=== PATIENT | male | born 1980 | race Caucasian/White ===

== ENCOUNTER 2016-06-18 22:36 | Emergency (ER) | payer SELFPAY ==
[~2016-06-18] VITALS: Ht 180.3 cm; Wt 78.0 kg
[~2016-06-18 22:36] MED LIST: BUPR-175 PO; LITH300 PO; SERO200T PO; WELL150T PO
[2016-06-18 22:38] VITALS: BP 161/99; PULSE 102; RESP 16; TEMP 98.4; O2SAT 98
[2016-06-18] MEDS ORDERED: LITH300T3 PO (23:20)
[2016-06-18] MEDS ORDERED: ADDE30TA PO (23:20)
[2016-06-18] MEDS ORDERED: SERO200T PO (23:20)
[2016-06-18] MEDS ORDERED: BUPR150CR PO (23:20)
--- NOTE | 2016-06-18 23:24 | PD ---
HPI Chief Complaint: Skin Problem Time Seen by Provider: 23:19 Travel History International Travel<30 days: No Contact w/Intl Traveler<30days: No Traveled to known affect area: No History of Present Illness HPI 36-year-old white male presents to emergency department complains of a area of tenderness, redness and swelling to the left inner calf. He states that this is been present now for 2 days and getting worse. He states the pain is radiating down his leg. He denies any trauma. 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 He is unsure whether he been bitten by an insect and has an infection. He states that he is disabled with mental health. He denies any IV drug abuse. He denies any fever chills. No nausea vomiting. No numbness or tingling. Pain is mild to moderate. No alleviating factors. PFSH Past Medical History Narrative Medical Hepatitis C, ADHD, bipolar, PTSD, schizoaffective ADD: Yes ADHD: Yes Arthritis: Yes Asthma: Yes Autoimmune Disease: No Bipolar Disorder: Yes Anxiety: Yes Depression: Yes Cancer: Yes Cardiovascular Problems: No Chemotherapy: No Cirrhosis: No COPD: No Cerebrovascular Accident: No Diabetes: No Diminished Hearing: No Endocrine: No Gastrointestinal Disorders: No GERD: No Genitourinary: No Headaches: Yes (All the time ) Hepatitis: Yes (HEP C) Hiatal Hernia: No Immune Disorder: No Kidney Stones: No Musculoskeletal: No Neurologic: Yes Psychiatric: Yes Reproductive: No Respiratory: Yes Immunizations Current: Yes Migraines: Yes Radiation Therapy: No Renal Failure: No Schizophrenia: Yes Seizures: Yes Sickle Cell Disease: No Sleep Apnea: No Thyroid Disease: No Ulcer: No Tetanus Vaccination: Unknown Past Surgical History Narrative Surgical Right groin cancer, herniorrhaphy Abdominal Surgery: Yes (herniorrhaphy) AICD: No Arteriovenous Shunt: No Insulin Pump: No Joint Replacement: No Oral Surgery: Yes Pacemaker: No Other Surgery: Yes (CANCER REMOVED FROM RT GROIN) Social History Alcohol Use: Yes Tobacco Use: Yes (1/2PPD) Substance Use: No (HX OF POLYSUBSTANCE ABUSE METH AND HEROIN) Allergies-Medications (Allergen,Severity, Reaction): Coded Allergies: Shellfish (Verified Allergy, Severe, HIVES, 04/15/15) *MDRO Multi-Drug Resistant Organism (Verified Adverse Reaction, Unknown, ) MRSA PCR Screen positive 10/28/14. Reported Meds & Prescriptions Reported Meds & Active Scripts Active Ibuprofen 800 Mg Tab 800 Mg PO Q8H PRN Keflex (Cephalexin) 500 Mg Cap 500 Mg PO Q6H Reported [place] Carbonate 300 Mg Tab 300 Mg PO BID Seroquel (Quetiapine Fumarate) 200 Mg Tab 200 Mg PO BID Adderall (Amphetamine-Dextroamphetamine) 30 Mg Tab 30 Mg PO BID Avoid late evening doses. Space doses at least 4 to 6 hours if more than once/day dosing. Review of Systems Except as stated in HPI: all other systems reviewed are Neg Physical Exam Narrative GENERAL: This is a well-nourished, well-developed patient, in no apparent distress. SKIN: No rashes, ecchymoses or lesions. Warm and dry. HEAD: Atraumatic. Normocephalic. EYES: PERRL, EOMI, no discharge or injection. No scleral icterus. EARS: Clear NOSE: Nasal turbinates appear normal. THROAT: Mucosa pink and moist. Airway patent. NECK: Trachea midline. supple, moves head freely. LUNGS: Clear to auscultation. CV: Regular in rhythm. ABDOMEN: Soft nontender. EXT: No clubbing cyanosis or edema. Patient has a area of erythema, warmth and induration to the medial mid left calf. There is some tenderness inferior to the induration. No posterior calf tenderness. No Homans sign. The area measures approximately 4 x 4 centimeters. No fluctuance or pointing. Data Data Last Documented VS Vital Signs Date Time Temp Pulse Resp B/P Pulse Ox O2 Delivery O2 Flow Rate FiO2 06/18/16 23:12 102 16 06/18/16 22:38 98.4 161/99 98 Orders Us Leg Venous Doppler (06/18/16 23:17) Complete Blood Count With Diff (06/18/16 23:17) Basic Metabolic Panel (Bmp) (06/18/16 23:17) Drug Screen, Random Urine (06/18/16 23:17) Cephalexin (Keflex) (06/19/16 01:30) Ibuprofen (Motrin) (06/19/16 01:30) Aspirin (Aspirin) (06/19/16 01:30) Labs Laboratory Tests Test 06/19/16 00:05 White Blood Count 10.8 TH/MM3 Red Blood Count 5.54 MIL/MM3 Hemoglobin 15.5 GM/DL Hematocrit 45.9 % Mean Corpuscular Volume 82.9 FL Mean Corpuscular Hemoglobin 28.0 PG Mean Corpuscular Hemoglobin 33.8 % Concent Red Cell Distribution Width 15.7 % Platelet Count 224 TH/MM3 Mean Platelet Volume 9.3 FL Neutrophils (%) (Auto) 65.9 % Lymphocytes (%) (Auto) 22.9 % Monocytes (%) (Auto) 8.7 % Eosinophils (%) (Auto) 1.7 % Basophils (%) (Auto) 0.8 % Neutrophils # (Auto) 7.1 TH/MM3 Lymphocytes # (Auto) 2.5 TH/MM3 Monocytes # (Auto) 0.9 TH/MM3 Eosinophils # (Auto) 0.2 TH/MM3 Basophils # (Auto) 0.1 TH/MM3 CBC Comment AUTO DIFF Sodium Level 139 MEQ/L Potassium Level 4.1 MEQ/L Chloride Level 105 MEQ/L Carbon Dioxide Level 29.1 MEQ/L Anion Gap 5 MEQ/L Blood Urea Nitrogen 7 MG/DL Creatinine 0.92 MG/DL Estimat Glomerular Filtration 93 ML/MIN Rate Random Glucose 86 MG/DL Calcium Level 9.1 MG/DL Urine Opiates Screen NEG Urine Barbiturates Screen NEG Urine Amphetamines Screen NEG Urine Benzodiazepines Screen NEG Urine Cocaine Screen NEG Urine Cannabinoids Screen NEG MDM Medical Decision Making Medical Screen Exam Complete: Yes Emergency Medical Condition: Yes Medical Record Reviewed: Yes Interpretation(s) CBC & BMP Diagram 06/19/16 00:05 Laboratory Tests Test 06/19/16 00:05 White Blood Count 10.8 TH/MM3 Red Blood Count 5.54 MIL/MM3 Hemoglobin 15.5 GM/DL Hematocrit 45.9 % Mean Corpuscular Volume 82.9 FL Mean Corpuscular Hemoglobin 28.0 PG Mean Corpuscular Hemoglobin 33.8 % Concent Red Cell Distribution Width 15.7 % Platelet Count 224 TH/MM3 Mean Platelet Volume 9.3 FL Neutrophils (%) (Auto) 65.9 % Lymphocytes (%) (Auto) 22.9 % Monocytes (%) (Auto) 8.7 % Eosinophils (%) (Auto) 1.7 % Basophils (%) (Auto) 0.8 % Neutrophils # (Auto) 7.1 TH/MM3 Lymphocytes # (Auto) 2.5 TH/MM3 Monocytes # (Auto) 0.9 TH/MM3 Eosinophils # (Auto) 0.2 TH/MM3 Basophils # (Auto) 0.1 TH/MM3 CBC Comment AUTO DIFF Sodium Level 139 MEQ/L Potassium Level 4.1 MEQ/L Chloride Level 105 MEQ/L Carbon Dioxide Level 29.1 MEQ/L Anion Gap 5 MEQ/L Blood Urea Nitrogen 7 MG/DL Creatinine 0.92 MG/DL Estimat Glomerular Filtration 93 ML/MIN Rate Random Glucose 86 MG/DL Calcium Level 9.1 MG/DL Urine Opiates Screen NEG Urine Barbiturates Screen NEG Urine Amphetamines Screen NEG Urine Benzodiazepines Screen NEG Urine Cocaine Screen NEG Urine Cannabinoids Screen NEG Last 24 hours Impressions Lower Extremity Ultrasound 06/18/16 3197 Signed Impressions: Service Date/Time: Saturday, June 18, 2016 23:33 - CONCLUSION: No evidence of deep venous thrombosis. Nonocclusive superficial thrombophlebitis in the greater saphenous vein Marin Rodriguez MD Differential Diagnosis MDM: High Differential diagnoses: Abscess, folliculitis, cellulitis, lymphangitis, abrasion, contact dermatitis, DVT, IVDA Narrative Course IV access is obtained. CBC, chemistry, UDS and ultrasound of left leg. Ultrasound confirms a superficial phlebitis. Patient's given Keflex 500 mg by mouth, Motrin 800 mg by mouth, and one aspirin 325 by mouth. Diagnosis Primary Impression: Phlebitis of leg, left, superficial Patient Instructions: General Instructions Additional Instructions: Rest. Warm compresses. One aspirin daily. Motrin and Keflex. Recheck with a medical doctor in one week. Return to the ER if any problems. Med/Other Pt SpecificInfo: Prescription(s) given Scripts Ibuprofen 800 Mg Fed119 Mg PO Q8H PRN (Pain/Inflammation) #30 TAB Prov:Re Jordan MD 06/19/16 Cephalexin (Keflex)500 Mg Sos904 Mg PO Q6H #40 CAP Prov:Re Jordan MD 06/19/16 Disposition: 01 DISCHARGE HOME Condition: Stable Mu Pérez Jun 18, 2016 23:23
--- NOTE | 2016-06-19 00:13 | RADRPT ---
EXAM DATE/TIME: 06/18/2016 23:33 [facility] COMPARISON: No previous studies available for comparison. INDICATIONS : Left leg swelling. MEDICAL HISTORY : Rheumatoid arthritis. Hepatitis C. Seizures. Head trauma. Migraines. Ashtma. Cancer. ADHD. Schiz ophrenia. Bipolar disorder. PTSD. Anxiety. Previous suicide attempt. Substance use. SURGICAL HISTORY : Herniorrhaphy. Cancer removed from right groin. ENCOUNTER: Initial ACUITY: 1 day PAIN SCORE: 8/10 LOCATION: Left leg. TECHNIQUE: Venous ultrasound of the leg was performed from the inguinal ligament to the proximal calf. Real-mari e, color Doppler and spectral tracing, compression and augmentation techniques were used. FINDINGS: There is normal compressibility of the deep venous system from the inguinal region to the proximal ca lf. No echogenic clot is seen in the lumen of the common femoral, femoral, popliteal, and posterior tibial veins. There is a normal response of the venous system to proximal and distal augmentation an d respiration. There is minimal nonocclusive thrombus involving the greater saphenous vein at the le boris of the knee. CONCLUSION: No evidence of deep venous thrombosis. Nonocclusive superficial thrombophlebitis in the greater saphe nous vein Marin Rodriguez MD on June 19, 2016 at 0:10 Board Certified Radiologist. This report was verified electronically.
[2016-06-19 00:36] LABS: AMPHETAMINE, URINE NEG (NEG); AUTOMATED NEUTROPHIL # 7.1 TH/MM3 (1.8-7.7); BARBITURATES, URINE NEG (NEG); BASOPHIL # 0.1 TH/MM3 (0-0.2); BASOPHIL % 0.8 % (0.0-2.0); COCAINE, URINE NEG (NEG); EOSINOPHIL # 0.2 TH/MM3 (0-0.4); EOSINOPHIL % 1.7 % (0.0-4.0); HEMATOCRIT 45.9 % (39.0-51.0); LYMPH % 22.9 % (9.0-44.0); LYMPHOCYTE # 2.5 TH/MM3 (1.0-4.8); MEAN CELL VOLUME 82.9 FL (80.0-100.0); MEAN CORPUSCULAR HGB CONC 33.8 % (32.0-36.0); MONO % 8.7 % (0.0-8.0); NEUT % 65.9 % (16.0-70.0); PLATELET COUNT 224 TH/MM3 (150-450); RED BLOOD COUNT 5.54 MIL/MM3 (4.50-5.90); RED CELL DISTRIBUTION WIDTH 15.7 % (11.6-17.2); WHITE BLOOD COUNT 10.8 TH/MM3 (4.0-11.0)
[2016-06-19 00:42] LABS: HEMO FLAGS AUTO DIFF
[2016-06-19 00:46] LABS: BICARBONATE 29.1 MEQ/L (21.0-32.0); POTASSIUM 4.1 MEQ/L (3.5-5.1)
[2016-06-19] MEDS ORDERED: CEPH-460 PO (01:26)
[2016-06-19] MEDS ORDERED: IBUP800T23 PO (01:26)
[2016-06-19] MEDS ORDERED: CEPHALEXIN MONOHYDRATE 500 MG CAP PO ONE (01:30)
[2016-06-19] MEDS ORDERED: IBUPROFEN 800 MG TAB PO ONE (01:30)
[2016-06-19] MEDS ORDERED: ASPIRIN 325 MG TAB PO ONE (01:30)
[2016-06-19 01:42] LABS: BANDS 2 % (0-6); EOSINOPHILS 1 % (0-4); NEUTROPHIL # MANUAL DIFF 7.7 TH/MM3 (1.8-7.7); PLATELET ESTIMATE SMEAR NORMAL (NORMAL); PLATELET MORPHOLOGY NORMAL (NORMAL); POLYS (SEG NEUTROPHILS) 69 % (16-70); SCAN/DIFF FINAL DIFF MANUAL; WBC DIFF SAMPLE 100
== END 2016-06-19 01:45 | disposition home or self-care (01) ==
LOC: NEPD 22:36
DX: I80.02 Phlebitis and thrombophlebitis of superficial vessels of left lower extremity (principal); F17.210 Nicotine dependence, cigarettes, uncomplicated; F43.10 Post-traumatic stress disorder, unspecified; B19.20 Unspecified viral hepatitis C without hepatic coma; F31.9 Bipolar disorder, unspecified; F20.9 Schizophrenia, unspecified
CPT/HCPCS: 80048; 80307; 85007; 85027; 93971

== ENCOUNTER 2016-11-02 11:34 | Emergency (ER) | payer SELFPAY ==
[~2016-11-02] VITALS: Ht 177.8 cm; Wt 85.0 kg
[~2016-11-02 11:34] MED LIST changes: +ADDE30TA PO; -BUPR-175 PO; +CEPH-460 PO; +IBUP800T23 PO; -LITH300 PO; +LITH300T3 PO; -WELL150T PO
[2016-11-02 11:36] VITALS: BP 117/67; PULSE 66; RESP 20; TEMP 98.6; O2SAT 99
--- NOTE | 2016-11-02 12:12 | PD ---
HPI Chief Complaint: Psychiatric Symptoms Time Seen by Provider: 12:03 Travel History International Travel<30 days: No Contact w/Intl Traveler<30days: No Traveled to known affect area: No History of Present Illness HPI 36-year-old male with history of schizophrenia and PTSD comes in voluntarily requesting psychiatric evaluation for suicidal ideation. Patient currently on Wellbutrin, Seroquel, lithium. Patient reports he was recently kicked out of a sober living house due to inability to pay. Patient reports history of IV heroin abuse. He reports he has been clean for the last 3 months. He reports the last 23 days he has been drinking heavily and has become suicidal. Last alcohol drink 2 hours ago. His plan is to overdose on heroin. He has a history of previous suicide attempts. He denies homicidal ideation. Patient denies fever, chills, chest pain, shortness breath, abdominal pain. PFSH Past Medical History ADD: Yes ADHD: Yes Arthritis: Yes Asthma: Yes Autoimmune Disease: No Bipolar Disorder: Yes Anxiety: Yes Depression: Yes Cancer: Yes Cardiovascular Problems: No Chemotherapy: No Cirrhosis: No COPD: No Cerebrovascular Accident: No Diabetes: No Diminished Hearing: No Endocrine: No Gastrointestinal Disorders: No GERD: No Genitourinary: No Headaches: Yes (All the time ) Hepatitis: Yes (HEP C) Hiatal Hernia: No Heparin Induced Thrombocytopen: No Immune Disorder: No Implanted Vascular Access Dvce: No Kidney Stones: No Musculoskeletal: No Neurologic: Yes Psychiatric: Yes Reproductive: No Respiratory: Yes Immunizations Current: Yes Migraines: Yes Radiation Therapy: No Renal Failure: No Schizophrenia: Yes Seizures: Yes Sickle Cell Disease: No Sleep Apnea: No Thyroid Disease: No Ulcer: No Tetanus Vaccination: < 5 Years Past Surgical History Abdominal Surgery: Yes (herniorrhaphy) AICD: No Arteriovenous Shunt: No Insulin Pump: No Joint Replacement: No Oral Surgery: Yes Pacemaker: No Other Surgery: Yes (CANCER REMOVED FROM RT GROIN) Social History Alcohol Use: Yes Tobacco Use: Yes (1/2PPD) Substance Use: No (HX OF POLYSUBSTANCE ABUSE METH AND HEROIN) Allergies-Medications (Allergen,Severity, Reaction): Coded Allergies: shellfish derived (Unverified Allergy, Severe, HIVES, 11/02/16) *MDRO Multi-Drug Resistant Organism (Verified Adverse Reaction, Unknown, ) MRSA PCR Screen positive 10/28/14. Reported Meds & Prescriptions Reported Meds & Active Scripts Active Ibuprofen 800 Mg Tab 800 Mg PO Q8H PRN Keflex (Cephalexin) 500 Mg Cap 500 Mg PO Q6H Reported [place] Carbonate 300 Mg Tab 300 Mg PO BID Seroquel (Quetiapine Fumarate) 200 Mg Tab 200 Mg PO BID Adderall (Amphetamine-Dextroamphetamine) 30 Mg Tab 30 Mg PO BID Avoid late evening doses. Space doses at least 4 to 6 hours if more than once/day dosing. Review of Systems Except as stated in HPI: all other systems reviewed are Neg Psychiatric: Positive: Depression, Suicidal Ideations Physical Exam Narrative GENERAL: Well-nourished, well-developed patient. Patient is calm. SKIN: Focused skin assessment warm/dry. HEAD: Normocephalic. EYES: No scleral icterus. No injection or drainage. NECK: Supple, trachea midline. No JVD or lymphadenopathy. CARDIOVASCULAR: Regular rate and rhythm without murmurs, gallops, or rubs. RESPIRATORY: Breath sounds equal bilaterally. No accessory muscle use. GASTROINTESTINAL: Abdomen soft, non-tender, nondistended. MUSCULOSKELETAL: No cyanosis, or edema. BACK: Nontender without obvious deformity. No CVA tenderness. PSYCHIATRIC: No delusional thought processes. No hallucinations. Flat affect Data Data Last Documented VS Vital Signs Date Time Temp Pulse Resp B/P (MAP) Pulse Ox O2 Delivery O2 Flow Rate FiO2 11/02/16 11:36 98.6 66 20 117/67 (84) 99 Room Air Orders Orders Complete Blood Count With Diff (11/02/16 12:09) Comprehensive Metabolic Panel (11/02/16 12:09) Psych Screen (11/02/16 12:09) Drug Screen, Random Urine (11/02/16 12:09) Alcohol (Ethanol) (11/02/16 12:09) [place] (Li) (11/02/16 12:12) Potassium Chloride (Kcl) (11/02/16 13:45) Labs Laboratory Tests Test 11/02/16 12:20 White Blood Count 6.7 TH/MM3 Red Blood Count 5.11 MIL/MM3 Hemoglobin 15.1 GM/DL Hematocrit 45.2 % Mean Corpuscular Volume 88.5 FL Mean Corpuscular Hemoglobin 29.6 PG Mean Corpuscular Hemoglobin Concent 33.5 % Red Cell Distribution Width 13.6 % Platelet Count 199 TH/MM3 Mean Platelet Volume 9.2 FL Neutrophils (%) (Auto) 56.8 % Lymphocytes (%) (Auto) 27.4 % Monocytes (%) (Auto) 8.7 % Eosinophils (%) (Auto) 6.4 % Basophils (%) (Auto) 0.7 % Neutrophils # (Auto) 3.8 TH/MM3 Lymphocytes # (Auto) 1.8 TH/MM3 Monocytes # (Auto) 0.6 TH/MM3 Eosinophils # (Auto) 0.4 TH/MM3 Basophils # (Auto) 0.0 TH/MM3 CBC Comment DIFF FINAL Differential Comment Blood Urea Nitrogen 18 MG/DL Creatinine 1.08 MG/DL Random Glucose 94 MG/DL Total Protein 7.2 GM/DL Albumin 3.6 GM/DL Calcium Level 8.4 MG/DL Alkaline Phosphatase 83 U/L Aspartate Amino Transf (AST/SGOT) 65 U/L [place]ine Aminotransferase (ALT/SGPT) 92 U/L Total Bilirubin 0.4 MG/DL Sodium Level 138 MEQ/L Potassium Level 3.2 MEQ/L Chloride Level 103 MEQ/L Carbon Dioxide Level 26.4 MEQ/L Anion Gap 9 MEQ/L Estimat Glomerular Filtration Rate 77 ML/MIN [place] Level 0.6 MEQ/L Ethyl Alcohol Level 12 MG/DL MDM Medical Decision Making Medical Screen Exam Complete: Yes Emergency Medical Condition: Yes Differential Diagnosis Suicidal ideation, substance induced mood disorder, depression Narrative Course 36-year-old male with history of schizophrenia and PTSD presents voluntarily requesting psychiatric evaluation for suicidal ideation. Patient reports he wants to overdose on heroin. Patient reports a history of IV heroin abuse. He has spent the last 3 months in a sober living facility which he reports he is obtained from heroin. Due to financial situations he was released from the program and over the last 2-3 days has been drinking alcohol heavily. He cannot quantify the amount. He reports he has a plan to overdose on heroin. Labs, drug screen, lithium level, psych screening pending. CBC: Unremarkable BMP: Mild hypokalemia 3.2, mild elevation of AST/ALT 65/95 [place] level: 0.6 Tox screen: Alcohol 12 Patient is stable and medically clear for psychiatric evaluation. Diagnosis Primary Impression: Suicidal ideation Additional Impression: Hypokalemia Leah Dallas Nov 02, 2016 12:12
[2016-11-02 12:51] LABS: AUTOMATED NEUTROPHIL # 3.8 TH/MM3 (1.8-7.7); BASOPHIL % 0.7 % (0.0-2.0); EOSINOPHIL # 0.4 TH/MM3 (0-0.4); EOSINOPHIL % 6.4 % (0.0-4.0); HEMATOCRIT 45.2 % (39.0-51.0); HEMO FLAGS DIFF FINAL; LYMPH % 27.4 % (9.0-44.0); LYMPHOCYTE # 1.8 TH/MM3 (1.0-4.8); MEAN CELL VOLUME 88.5 FL (80.0-100.0); MEAN CORPUSCULAR HEMOGLOBIN 29.6 PG (27.0-34.0); MEAN CORPUSCULAR HGB CONC 33.5 % (32.0-36.0); MONO % 8.7 % (0.0-8.0); NEUT % 56.8 % (16.0-70.0); PLATELET COUNT 199 TH/MM3 (150-450); RED BLOOD COUNT 5.11 MIL/MM3 (4.50-5.90); RED CELL DISTRIBUTION WIDTH 13.6 % (11.6-17.2); WHITE BLOOD COUNT 6.7 TH/MM3 (4.0-11.0)
[2016-11-02 13:28] LABS: ALT (GPT) 92 U/L (12-78); ANION GAP 9 MEQ/L (5-15); AST (GOT) 65 U/L (15-37); BICARBONATE 26.4 MEQ/L (21.0-32.0); BLOOD UREA NITROGEN 18 MG/DL (7-18); CHLORIDE 103 MEQ/L (98-107); GLOMERULAR FILTRATION RATE 77 ML/MIN (>89); POTASSIUM 3.2 MEQ/L (3.5-5.1); SODIUM (NA) 138 MEQ/L (136-145)
[2016-11-02 13:30] LABS: ALKALINE PHOSPHATASE 83 U/L (45-117); TOTAL BILIRUBIN ADULT 0.4 MG/DL (0.2-1.0)
[2016-11-02 13:31] LABS: ALCOHOL 12 MG/DL (0-5)
[2016-11-02] MEDS ORDERED: POTASSIUM CHLORIDE 20 MEQ CONTROLLED RELEASE TAB PO ONE (13:45)
[2016-11-02 14:31] VITALS: BP 124/78; PULSE 60; RESP 20; TEMP 98; O2SAT 99
[2016-11-02 18:30] VITALS: BP 131/78; PULSE 58; RESP 14; O2SAT 97
[2016-11-03 06:20] VITALS: BP 129/76; PULSE 56; RESP 18; O2SAT 96
--- NOTE | 2016-11-03 14:24 | PD ---
History of Present Illness Chief Complaint: Psychiatric Symptoms Time Seen by Provider: 14:15 Travel History International Travel<30 Days: No Contact w/Intl Traveler<30days: No Known affected area: No Legal Status Legal Status: Voluntary History of Present Illness: 36-year-old male who wants detox and rehabilitation at [facility] for history of IVDA heroin abuse. Patient is not currently suicidal or homicidal and denies any suicidal or homicidal ideation, plan or intent. He does admit to making these threats in order to get help with his drug problem. Patient is not appropriate for psychiatric hospitalization. He is willing to go voluntarily to [facility] but states his has his clothing. He will not go to [facility] in paper scrubs. Therefore this physician feels the patient can be discharged from psychiatry and weight for his close, after calling his . PFSH Past Medical History ADD: Yes ADHD: Yes Arthritis: Yes Asthma: Yes Autoimmune Disease: No Bipolar Disorder: Yes Anxiety: Yes Depression: Yes Cancer: Yes Cardiovascular Problems: No Chemotherapy: No Cirrhosis: No COPD: No Cerebrovascular Accident: No Diabetes: No Diminished Hearing: No Endocrine: No Gastrointestinal Disorders: No GERD: No Genitourinary: No Headaches: Yes (All the time ) Hepatitis: Yes (HEP C) Hiatal Hernia: No Heparin Induced Thrombocytopen: No Immune Disorder: No Implanted Vascular Access Dvce: No Kidney Stones: No Musculoskeletal: No Neurologic: Yes Psychiatric: Yes Reproductive: No Respiratory: Yes Immunizations Current: Yes Migraines: Yes Radiation Therapy: No Renal Failure: No Schizophrenia: Yes Seizures: Yes Sickle Cell Disease: No Sleep Apnea: No Thyroid Disease: No Ulcer: No Tetanus Vaccination: < 5 Years Past Surgical History Abdominal Surgery: Yes (herniorrhaphy) AICD: No Arteriovenous Shunt: No Insulin Pump: No Joint Replacement: No Oral Surgery: Yes Pacemaker: No Other Surgery: Yes (CANCER REMOVED FROM RT GROIN) Psychiatric History Psychiatric History Hx Psychiatric Treatment: [facility] August 24 and August 27 2014. This physician does not see any significant objective clinical evidence of bipolar disorder or any other major mental illness at this time. Patient appears obviously to be a drug addict with a heroin problem. History of Inpatient Treatment: Yes Guns or firearms in home: No Social History Hx Alcohol Use: Yes Hx Tobacco Use: Yes (1/2PPD) Hx Substance Use: No (HX OF POLYSUBSTANCE ABUSE METH AND HEROIN) Substance Use Type: Heroin, Cocaine, Other Other Substances Used: HX OF POLYSUBSTANCE ABUSE, PER PATIENT RECENTLY CLEAN OFF METH AND HEROIN Hx of Substance Use Treatment: Yes Allergies-Medications (Allergen,Severity, Reaction): Coded Allergies: shellfish derived (Unverified Allergy, Severe, HIVES, 11/02/16) *MDRO Multi-Drug Resistant Organism (Verified Adverse Reaction, Unknown, ) MRSA PCR Screen positive 10/28/14. Reported Meds & Prescriptions Reported Meds & Active Scripts Active Ibuprofen 800 Mg Tab 800 Mg PO Q8H PRN Keflex (Cephalexin) 500 Mg Cap 500 Mg PO Q6H Reported [place] Carbonate 300 Mg Tab 300 Mg PO BID Seroquel (Quetiapine Fumarate) 200 Mg Tab 200 Mg PO BID Adderall (Amphetamine-Dextroamphetamine) 30 Mg Tab 30 Mg PO BID Avoid late evening doses. Space doses at least 4 to 6 hours if more than once/day dosing. Review of Systems Except as stated in HPI: all other systems reviewed are Neg Exam [place]: Place, Date, Situation Mood: Calm Affect: Appropriate Speech: Clear, Logical Eye Contact: Normal Memory Intact: Immediate, Recent, Remote Insight/Judgement Adequate MDM Medical Decision Making Medical Record Reviewed: Yes Assessment/Plan Patient interviewed at bedside, medical record reviewed and case discussed with nurse Roca. Patient is a self-admitted IV drug abuser and is asking for treatment at [facility]. This physician does not find the patient qualifies for a major mental illness at this time. (Unrelated to drug abuse.) Patient has no suicidal or homicidal ideation, plan or intent at this time but is chronically at risk for self-harm and acting out as a result of his drug abuse. This cannot be predicted or avoided given the nature of his drug use and personality. He is being [facility] with [facility] as an referral to [facility] for further evaluation and treatment. Orders Orders Diet Regular Basic (11/02/16 Dinner) Diet Regular Basic (11/03/16 Breakfast) Diet Regular Basic (11/03/16 Lunch) Diet Regular Basic (11/03/16 Dinner) Results Vital Signs Date Time Temp Pulse Resp B/P (MAP) Pulse Ox O2 Delivery O2 Flow Rate FiO2 11/03/16 06:20 56 18 129/76 (93) 96 Room Air 11/02/16 18:30 58 14 131/78 (95) 97 Room Air 11/02/16 14:31 98.0 60 20 124/78 (93) 99 Diagnosis Primary Impression: Opiate abuse, continuous David Jiang MD Nov 03, 2016 14:24
[2016-11-03 14:32] VITALS: BP 139/77; PULSE 54; RESP 18
--- NOTE | 2016-11-03 14:37 | PD ---
Physical Exam Date Seen by Provider: Nov 03, 2016 Time Seen by Provider: 14:37 Narrative patient seen by Dr. Jiang and cleared for discharge. patient had no complaints when I saw them. No suicide or homicide ideation. discharge orders placed. Data Data Last Documented VS Vital Signs Date Time Temp Pulse Resp B/P (MAP) Pulse Ox O2 Delivery O2 Flow Rate FiO2 11/03/16 14:32 54 18 139/77 (97) 11/03/16 06:20 96 Room Air 11/02/16 14:31 98.0 Orders Orders Complete Blood Count With Diff (11/02/16 12:09) Comprehensive Metabolic Panel (11/02/16 12:09) Psych Screen (11/02/16 12:09) Drug Screen, Random Urine (11/02/16 12:09) Alcohol (Ethanol) (11/02/16 12:09) [place] (Li) (11/02/16 12:12) Potassium Chloride (Kcl) (11/02/16 13:45) Diet Regular Basic (11/02/16 Dinner) Diet Regular Basic (11/03/16 Breakfast) Diet Regular Basic (11/03/16 Lunch) Diet Regular Basic (11/03/16 Dinner) Labs Laboratory Tests Test 11/02/16 12:20 White Blood Count 6.7 TH/MM3 Red Blood Count 5.11 MIL/MM3 Hemoglobin 15.1 GM/DL Hematocrit 45.2 % Mean Corpuscular Volume 88.5 FL Mean Corpuscular Hemoglobin 29.6 PG Mean Corpuscular Hemoglobin Concent 33.5 % Red Cell Distribution Width 13.6 % Platelet Count 199 TH/MM3 Mean Platelet Volume 9.2 FL Neutrophils (%) (Auto) 56.8 % Lymphocytes (%) (Auto) 27.4 % Monocytes (%) (Auto) 8.7 % Eosinophils (%) (Auto) 6.4 % Basophils (%) (Auto) 0.7 % Neutrophils # (Auto) 3.8 TH/MM3 Lymphocytes # (Auto) 1.8 TH/MM3 Monocytes # (Auto) 0.6 TH/MM3 Eosinophils # (Auto) 0.4 TH/MM3 Basophils # (Auto) 0.0 TH/MM3 CBC Comment DIFF FINAL Differential Comment Blood Urea Nitrogen 18 MG/DL Creatinine 1.08 MG/DL Random Glucose 94 MG/DL Total Protein 7.2 GM/DL Albumin 3.6 GM/DL Calcium Level 8.4 MG/DL Alkaline Phosphatase 83 U/L Aspartate Amino Transf (AST/SGOT) 65 U/L Alanine Aminotransferase (ALT/SGPT) 92 U/L Total Bilirubin 0.4 MG/DL Sodium Level 138 MEQ/L Potassium Level 3.2 MEQ/L Chloride Level 103 MEQ/L Carbon Dioxide Level 26.4 MEQ/L Anion Gap 9 MEQ/L Estimat Glomerular Filtration Rate 77 ML/MIN [place] Level 0.6 MEQ/L Ethyl Alcohol Level 12 MG/DL [facility] Medical Record Reviewed: Yes Supervised Visit with SHAYY: No Diagnosis Primary Impression: Opiate abuse, continuous Patient Instructions: General Instructions Disposition: 01 DISCHARGE HOME Condition: Stable Denise Tucker Nov 03, 2016 14:37
[2016-11-03 17:57] VITALS: BP 139/77; TEMP 98.1
== END 2016-11-03 18:00 | disposition home or self-care (01) ==
LOC: NEPD 11:34 → NEPJ 11-03 18:00
DX: F20.9 Schizophrenia, unspecified (principal); R45.851 Suicidal ideations; F11.10 Opioid abuse, uncomplicated; E87.6 Hypokalemia
CPT/HCPCS: 80053; 80178; 80307; 85025; 99284

== ENCOUNTER 2016-11-19 01:49 | Emergency (ER) | payer SELFPAY ==
[2016-11-19 01:57] VITALS: BP 108/53; PULSE 80; RESP 17; TEMP 98.2; O2SAT 100
--- NOTE | 2016-11-19 03:14 | PD ---
HPI Chief Complaint: Alcohol/Drug Intoxication Time Seen by Provider: 03:01 Travel History International Travel<30 days: No Contact w/Intl Traveler<30days: No Traveled to known affect area: No History of Present Illness HPI 36-year-old white male with a history of substance abuse presents to emergency department under [place]. The patient had a relapse. He had been living in a sober living facility. He has been drinking alcohol and doing drugs. The patient is poorly coherent at this time. He is acutely under the influence. There is no evidence of trauma. PFSH Past Medical History Medical History: Unable to Obtain ADD: Yes ADHD: Yes Arthritis: Yes Asthma: Yes Autoimmune Disease: No Bipolar Disorder: Yes Anxiety: Yes Depression: Yes Cancer: Yes Cardiovascular Problems: No Chemotherapy: No Cirrhosis: No COPD: No Cerebrovascular Accident: No Diabetes: No Diminished Hearing: No Endocrine: No Gastrointestinal Disorders: No GERD: No Genitourinary: No Headaches: Yes (All the time ) Hepatitis: Yes (HEP C) Hiatal Hernia: No Heparin Induced Thrombocytopen: No Immune Disorder: No Implanted Vascular Access Dvce: No Kidney Stones: No Musculoskeletal: No Neurologic: Yes Psychiatric: Yes Reproductive: No Respiratory: Yes Immunizations Current: Yes Migraines: Yes Radiation Therapy: No Renal Failure: No Schizophrenia: Yes Seizures: Yes Sickle Cell Disease: No Sleep Apnea: No Thyroid Disease: No Ulcer: No Past Surgical History Surgical History: Unable to Obtain Abdominal Surgery: Yes (herniorrhaphy) AICD: No Arteriovenous Shunt: No Insulin Pump: No Joint Replacement: No Oral Surgery: Yes Pacemaker: No Other Surgery: Yes (CANCER REMOVED FROM RT GROIN) Social History Alcohol Use: Yes Tobacco Use: Yes (1/2PPD) Substance Use: No (HX OF POLYSUBSTANCE ABUSE METH AND HEROIN) Allergies-Medications (Allergen,Severity, Reaction): Coded Allergies: shellfish derived (Unverified Allergy, Severe, HIVES, 11/02/16) *MDRO Multi-Drug Resistant Organism (Verified Adverse Reaction, Unknown, ) MRSA PCR Screen positive 10/28/14. Reported Meds & Prescriptions Reported Meds & Active Scripts Active Ibuprofen 800 Mg Tab 800 Mg PO Q8H PRN Keflex (Cephalexin) 500 Mg Cap 500 Mg PO Q6H Reported [place] Carbonate 300 Mg Tab 300 Mg PO BID Seroquel (Quetiapine Fumarate) 200 Mg Tab 200 Mg PO BID Adderall (Amphetamine-Dextroamphetamine) 30 Mg Tab 30 Mg PO BID Avoid late evening doses. Space doses at least 4 to 6 hours if more than once/day dosing. Review of Systems ROS Limitations: Intoxication Physical Exam Narrative GENERAL: This is a well-nourished, well-developed patient, in no apparent distress. SKIN: No rashes, ecchymoses or lesions. Warm and dry. HEAD: Atraumatic. Normocephalic. EYES: PERRL, EOMI, no discharge or injection. No scleral icterus. EARS: Clear NOSE: Nasal turbinates appear normal. THROAT: Mucosa pink and moist. Airway patent. NECK: Trachea midline. supple, moves head freely. LUNGS: Clear to auscultation. CV: Regular in rhythm. ABDOMEN: Soft nontender. EXT: No clubbing cyanosis or edema. Data Data Last Documented VS Vital Signs Date Time Temp Pulse Resp B/P (MAP) Pulse Ox O2 Delivery O2 Flow Rate FiO2 11/19/16 02:05 80 17 100 Room Air 11/19/16 01:57 98.2 108/53 (71) MDM Medical Decision Making Medical Screen Exam Complete: Yes Emergency Medical Condition: Yes Medical Record Reviewed: Yes Differential Diagnosis Differential diagnoses: Alcohol intoxication, substance abuse, electrolyte abnormality, malingering Narrative Course This is a 36year-old white male under the influence of alcohol and drugs. The patient has relapsed and has been kicked out of his rehabilitation. The patient will be allowed to sleep it off here in the ER and will be discharged in the morning. This is polysubstance abuse Diagnosis Primary Impression: Polysubstance dependence Patient Instructions: General Instructions Additional Instructions: Rest. Increase fluids. Avoid alcohol. Avoid illegal substances. Follow-up with [facility] for detox. Do not operate a car or any heavy machinery under the influence of alcohol or drugs. Follow-up with a medical doctor this week. Return to the ER for emergencies Med/Other Pt SpecificInfo: No Meds Exist/No RX given Disposition: 01 DISCHARGE HOME Condition: Stable Mu Pérez Nov 19, 2016 03:14
== END 2016-11-19 06:40 | disposition home or self-care (01) ==
LOC: NEPD 01:49
DX: F19.20 Other psychoactive substance dependence, uncomplicated (principal)
CPT/HCPCS: 99283

== ENCOUNTER 2016-11-30 18:16 | Observation (INO) | payer SELFPAY ==
[~2016-11-30] VITALS: Ht 165.1 cm; Wt 77.0 kg
[2016-11-30] VITALS (7 sets, daily range): BP systolic 108–128; BP diastolic 56–77; PULSE 74–141; RESP 16–30; TEMP 96.8–98.8; O2SAT 96–100
[2016-11-30] MEDS ORDERED: LORazepam 2 MG/ML VIAL ONE (18:21)
[2016-11-30] MEDS ORDERED: SODIUM CHLOR 0.9% 1000 ML INJ 1,000 ML IV ONE (18:28)
[2016-11-30] MEDS ORDERED: SODIUM CHLORIDE 0.9% FLUSH 10 ML FLUSH IVF PRN (18:30)
[2016-11-30] MEDS ORDERED: LORazepam 2 MG/ML VIAL IV PUSH ONE ×2 (18:30)
--- NOTE | 2016-11-30 19:01 | PD ---
HPI Chief Complaint: OD/ Ingestion Time Seen by Provider: 18:27 Travel History International Travel<30 days: No Contact w/Intl Traveler<30days: No Traveled to known affect area: No History of Present Illness HPI 36-year-old male came to the emergency room after overdosing on 50 mg of Seroquel approximately 30 of them and 20-30 pills off [id number] Benadryl each off probably 25 mg. As per the patient he took this one hour ago. He called his girlfriend and told him that he had overdosed to call the police. Police M[place] acted him. Patient was brought in by EMS. He is awake but refusing to talk much. History was all obtained from EMS. No history of vomiting. Patient was significantly tachycardic initially. Currently upon arrival his heart rate is 130s and blood pressure is 125/60. This was an intentional overdose. [facility] Past Medical History Narrative Medical List of his past medical, surgical, social and family history is reviewed from the nursing note. ADD: Yes ADHD: Yes Arthritis: Yes Asthma: Yes Autoimmune Disease: No Bipolar Disorder: Yes Anxiety: Yes Depression: Yes Cancer: Yes Cardiovascular Problems: No Chemotherapy: No Cirrhosis: No COPD: No Cerebrovascular Accident: No Diabetes: No Diminished Hearing: No Endocrine: No Gastrointestinal Disorders: No GERD: No Genitourinary: No Headaches: Yes (All the time ) Hepatitis: Yes (HEP C) Hiatal Hernia: No Heparin Induced Thrombocytopen: No Immune Disorder: No Implanted Vascular Access Dvce: No Kidney Stones: No Musculoskeletal: No Neurologic: Yes Psychiatric: Yes Reproductive: No Respiratory: Yes Immunizations Current: Yes Migraines: Yes Radiation Therapy: No Renal Failure: No Schizophrenia: Yes Seizures: Yes Sickle Cell Disease: No Sleep Apnea: No Thyroid Disease: No Ulcer: No Past Surgical History Abdominal Surgery: Yes (herniorrhaphy) AICD: No Arteriovenous Shunt: No Insulin Pump: No Joint Replacement: No Oral Surgery: Yes Pacemaker: No Other Surgery: Yes (CANCER REMOVED FROM RT GROIN) Social History Alcohol Use: Yes Tobacco Use: Yes (1/2PPD) Substance Use: No (HX OF POLYSUBSTANCE ABUSE METH AND HEROIN) Allergies-Medications (Allergen,Severity, Reaction): Coded Allergies: shellfish derived (Unverified Allergy, Severe, HIVES, 11/02/16) *MDRO Multi-Drug Resistant Organism (Verified Adverse Reaction, Unknown, ) MRSA PCR Screen positive 10/28/14. Comments List of his allergies reviewed from the nursing note. Reported Meds & Prescriptions Reported Meds & Active Scripts Active Narrative Medication List of his home medications reviewed from the nursing note. Review of Systems ROS Limitations: Refused Except as stated in HPI: all other systems reviewed are Neg Psychiatric: Positive: Depression, Other (intentional overdose) Physical Exam Narrative GENERAL: Groggy, alert but refusing to talk, no obvious distress SKIN: Focused skin assessment warm/dry. HEAD: Atraumatic. Normocephalic. EYES: Pupils equal and round. No scleral icterus. No injection or drainage. ENT: No nasal bleeding or discharge. Dry mouth, mucous membranes NECK: Trachea midline. No JVD. CARDIOVASCULAR: Regular rate and rhythm. Tachycardia. No murmur appreciated. RESPIRATORY: No accessory muscle use. Clear to auscultation. Breath sounds equal bilaterally. GASTROINTESTINAL: Abdomen soft, non-tender, nondistended. Hepatic and splenic margins not palpable. MUSCULOSKELETAL: No obvious deformities. No clubbing. No cyanosis. No edema. NEUROLOGICAL: Awake and alert. No obvious cranial nerve deficits. Motor grossly within normal limits. Normal speech. PSYCHIATRIC: Appropriate mood and affect; insight and judgment normal. Data Data Last Documented VS Vital Signs Date Time Temp Pulse Resp B/P (MAP) Pulse Ox O2 Delivery O2 Flow Rate FiO2 11/30/16 20:27 98.4 93 16 118/59 (78) 98 Room Air Orders Orders Lorazepam Inj (Ativan Inj) (11/30/16 18:21) Electrocardiogram (11/30/16 18:28) Basic Metabolic Panel (Bmp) (11/30/16 18:28) Complete Blood Count With Diff (11/30/16 18:28) Urinalysis - C+S If Indicated (11/30/16 18:28) Iv Access Insert/Monitor (11/30/16 18:28) Ecg Monitoring (11/30/16 18:) Oximetry (11/30/16 18:28) Sodium Chloride 0.9% Flush (Ns Flush) (11/30/16 18:30) Sodium Chlor 0.9% 1000 Ml Inj (Ns 1000 M (11/30/16 18:28) Call Poison Control (11/30/16 18:28) Drug Screen, Random Urine (11/30/16 18:28) Alcohol (Ethanol) (11/30/16 18:28) Salicylates (Aspirin) (11/30/16 18:28) Tylenol (Acetaminophen) (11/30/16 18:28) Lorazepam Inj (Ativan Inj) (11/30/16 18:30) Lorazepam Inj (Ativan Inj) (11/30/16 18:30) ^ Sitter (11/30/16 18:41) Admit Order (Ed Use Only) (11/30/16 21:23) Place In Observation (11/30/16 ) Vital Signs (Adult) Q4H (11/30/16 21:32) Apricot Washer / Telemetry .CONTINUOUS (11/30/16:32) Diet Regular Basic (12/01/16 Breakfast) Sodium Chlor 0.9% 1000 Ml Inj (Ns 1000 M (11/30/16 21:32) Sodium Chloride 0.9% Flush (Ns Flush) (11/30/16 21:45) Sodium Chloride 0.9% Flush (Ns Flush) (12/01/16 09:00) Ondansetron Inj (Zofran Inj) (11/30/16 21:45) Comprehensive Metabolic Panel (12/01/16 06:00) Complete Blood Count With Diff (12/01/16 06:00) Electrocardiogram (11/30/16 22:00) Electrocardiogram (12/01/16 02:00) Electrocardiogram (12/01/16 06:00) Scd Bilateral/Knee High AURY.BID (11/30/16 21:32) Naloxone Inj (Narcan Inj) (11/30/16 21:45) Basic Metabolic Panel (Bmp) (12/01/16 22:00) Labs Laboratory Tests Test 11/30/16 18:45 White Blood Count 8.7 TH/MM3 Red Blood Count 4.99 MIL/MM3 Hemoglobin 14.9 GM/DL Hematocrit 44.1 % Mean Corpuscular Volume 88.3 FL Mean Corpuscular Hemoglobin 29.9 PG Mean Corpuscular Hemoglobin Concent 33.8 % Red Cell Distribution Width 13.6 % Platelet Count 203 TH/MM3 Mean Platelet Volume 9.7 FL Neutrophils (%) (Auto) 63.6 % Lymphocytes (%) (Auto) 24.8 % Monocytes (%) (Auto) 8.0 % Eosinophils (%) (Auto) 2.7 % Basophils (%) (Auto) 0.9 % Neutrophils # (Auto) 5.5 TH/MM3 Lymphocytes # (Auto) 2.1 TH/MM3 Monocytes # (Auto) 0.7 TH/MM3 Eosinophils # (Auto) 0.2 TH/MM3 Basophils # (Auto) 0.1 TH/MM3 CBC Comment DIFF FINAL Differential Comment Urine Color YELLOW Urine Turbidity CLEAR Urine pH 6.5 Urine Specific [place] 1.028 Urine Protein 30 mg/dL Urine Glucose (UA) NEG mg/dL Urine Ketones NEG mg/dL Urine Occult Blood NEG Urine Nitrite NEG Urine Bilirubin NEG Urine Urobilinogen 2.0 MG/DL Urine Leukocyte Esterase NEG Urine RBC 1 /hpf Urine WBC 1 /hpf Urine Hyaline Casts 1 /lpf Urine Mucus FEW /lpf Microscopic Urinalysis Comment CULT NOT INDICATED Blood Urea Nitrogen 20 MG/DL Creatinine 1.34 MG/DL Random Glucose 115 MG/DL Calcium Level 9.8 MG/DL Sodium Level 138 MEQ/L Potassium Level 4.3 MEQ/L Chloride Level 106 MEQ/L Carbon Dioxide Level 23.9 MEQ/L Anion Gap 8 MEQ/L Estimat Glomerular Filtration Rate 60 ML/MIN Salicylates Level 3.5 MG/DL Urine Opiates Screen NEG Acetaminophen Level LESS THAN 2.0 MCG/ML Urine Barbiturates Screen NEG Urine Amphetamines Screen NEG Urine Benzodiazepines Screen NEG Urine Cocaine Screen NEG Urine Cannabinoids Screen NEG Ethyl Alcohol Level LESS THAN 3 MG/DL MDM Medical Decision Making Medical Screen Exam Complete: Yes Emergency Medical Condition: Yes Medical Record Reviewed: Yes Interpretation(s) Twelve-lead EKG was reviewed by me. Normal sinus rhythm, normal axis, tachycardia, nonspecific ST-T wave changes. Heart rate of 154 bpm. Differential Diagnosis Intentional overdose, serotonin syndrome, anticholinergic toxidrome, impending respiratory failure Narrative Course 6:59 PM patient was given 1 L fluid bolus. I ordered 2 mg of IV Ativan. I have asked for a repeat EKG which is getting done currently. I'm watching for QRS widening and QT prolongation. Poison control was consulted. Please refer to the RNs documentation regarding their recommendation. Patient will be signed over to the oncoming ER physician. Patient obviously will require admission. Critical Care Narrative Aggregate critical care time was 30 minutes. Time to perform other separately billable procedures was not included in the critical care time. My time did not include minutes spent treating any other patients simultaneously or on activities that did not directly contribute to the patient's treatment. The services I provided to this patient were to treat and/or prevent clinically significant deterioration that could result in: Intentional overdose, tachycardia I provided critical care services requiring my management, as noted below: Chart data review, documentation time, medication orders and management, vital sign assessments/reviewing monitor data, ordering and reviewing lab tests, ordering and interpreting/reviewing x-rays and diagnostic studies, care of the patient and discussion of the patient with the admitting physicians. Procedures EKG Prior to Arrival: Yes Diagnosis Primary Impression: Intentional SSRI (selective serotonin reuptake inhibitor) overdose Qualified Codes: T43.222A - Poisoning by selective serotonin reuptake inhibitors, intentional self-harm, initial encounter Additional Impression: Intentional diphenhydramine overdose Qualified Codes: T45.0X2A - Poisoning by antiallergic and antiemetic drugs, intentional self-harm, initial encounter Scripts Clonidine (Clonidine) 0.1 Mg Tab 0.1 MG PO TID Y for SBP>160, DBP>90, #60 TAB 0 Refills Prov: Elian Muñoz 12/01/16 Trudy Cardenas MD Nov 30, 2016 19:01
[2016-11-30 19:25] LABS: AUTOMATED NEUTROPHIL # 5.5 TH/MM3 (1.8-7.7); BASOPHIL # 0.1 TH/MM3 (0-0.2); BASOPHIL % 0.9 % (0.0-2.0); EOSINOPHIL # 0.2 TH/MM3 (0-0.4); EOSINOPHIL % 2.7 % (0.0-4.0); HEMATOCRIT 44.1 % (39.0-51.0); HEMO FLAGS DIFF FINAL; LYMPH % 24.8 % (9.0-44.0); LYMPHOCYTE # 2.1 TH/MM3 (1.0-4.8); MEAN CELL VOLUME 88.3 FL (80.0-100.0); MEAN CORPUSCULAR HEMOGLOBIN 29.9 PG (27.0-34.0); MEAN CORPUSCULAR HGB CONC 33.8 % (32.0-36.0); NEUT % 63.6 % (16.0-70.0); PLATELET COUNT 203 TH/MM3 (150-450); RED BLOOD COUNT 4.99 MIL/MM3 (4.50-5.90); RED CELL DISTRIBUTION WIDTH 13.6 % (11.6-17.2); WHITE BLOOD COUNT 8.7 TH/MM3 (4.0-11.0)
[2016-11-30 19:33] LABS: BLOOD, URINE NEG (NEG); COMMENT (UR) CULT NOT INDICATED; CULTURE IF INDICATED CULT NOT INDICATED; GLUCOSE,URINE NEG (NEG); HYALINE CAST, URINE 1 /lpf (RARE); KETONE, URINE NEG (NEG); MUCUS URINE FEW /lpf (OCC); NITRITE,URINE NEG (NEG); PH, URINE 6.5 (5.0-8.5); URINE COLOR YELLOW (YELLW/STRAW)
[2016-11-30 19:42] LABS: ANION GAP 8 MEQ/L (5-15); BICARBONATE 23.9 MEQ/L (21.0-32.0); BLOOD UREA NITROGEN 20 MG/DL (7-18); CHLORIDE 106 MEQ/L (98-107); GLOMERULAR FILTRATION RATE 60 ML/MIN (>89); POTASSIUM 4.3 MEQ/L (3.5-5.1); SODIUM (NA) 138 MEQ/L (136-145)
[2016-11-30 19:43] LABS: ACETAMINOPHEN LESS THAN 2.0 MCG/ML (10.0-30.0); ALCOHOL LESS THAN 3 MG/DL (0-5)
--- NOTE | 2016-11-30 20:53 | PD ---
Physical Exam Narrative Patient was seen by ED physician and signed out to me. Data Data Last Documented VS Vital Signs Date Time Temp Pulse Resp B/P (MAP) Pulse Ox O2 Delivery O2 Flow Rate FiO2 11/30/16 20:27 98.4 93 16 118/59 (78) 98 Room Air Orders Orders Lorazepam Inj (Ativan Inj) (11/30/16 18:21) Electrocardiogram (11/30/16 18:28) Basic Metabolic Panel (Bmp) (11/30/16 18:28) Complete Blood Count With Diff (11/30/16 18:) Urinalysis - C+S If Indicated (11/30/16 18:28) Iv Access Insert/Monitor (11/30/16:) Ecg Monitoring (11/30/16) Oximetry (11/30/16:) Sodium Chloride 0.9% Flush (Ns Flush) (11/30/16 18:30) Sodium Chlor 0.9% 1000 Ml Inj (Ns 1000 M (11/30/16 18:28) Call Poison Control (11/30/16 18:28) Drug Screen, Random Urine (11/30/16 18:28) Alcohol (Ethanol) (11/30/16 18:28) Salicylates (Aspirin) (11/30/16 18:28) Tylenol (Acetaminophen) (11/30/16 18:28) Lorazepam Inj (Ativan Inj) (11/30/16 18:30) Lorazepam Inj (Ativan Inj) (11/30/16 18:30) ^ Sitter (11/30/16 18:41) Labs Laboratory Tests Test 11/30/16 18:45 White Blood Count 8.7 TH/MM3 Red Blood Count 4.99 MIL/MM3 Hemoglobin 14.9 GM/DL Hematocrit 44.1 % Mean Corpuscular Volume 88.3 FL Mean Corpuscular Hemoglobin 29.9 PG Mean Corpuscular Hemoglobin Concent 33.8 % Red Cell Distribution Width 13.6 % Platelet Count 203 TH/MM3 Mean Platelet Volume 9.7 FL Neutrophils (%) (Auto) 63.6 % Lymphocytes (%) (Auto) 24.8 % Monocytes (%) (Auto) 8.0 % Eosinophils (%) (Auto) 2.7 % Basophils (%) (Auto) 0.9 % Neutrophils # (Auto) 5.5 TH/MM3 Lymphocytes # (Auto) 2.1 TH/MM3 Monocytes # (Auto) 0.7 TH/MM3 Eosinophils # (Auto) 0.2 TH/MM3 Basophils # (Auto) 0.1 TH/MM3 CBC Comment DIFF FINAL Differential Comment Urine Color YELLOW Urine Turbidity CLEAR Urine pH 6.5 Urine Specific [place] 1.028 Urine Protein 30 mg/dL Urine Glucose (UA) NEG mg/dL Urine Ketones NEG mg/dL Urine Occult Blood NEG Urine Nitrite NEG Urine Bilirubin NEG Urine Urobilinogen 2.0 MG/DL Urine Leukocyte Esterase NEG Urine RBC 1 /hpf Urine WBC 1 /hpf Urine Hyaline Casts 1 /lpf Urine Mucus FEW /lpf Microscopic Urinalysis Comment CULT NOT INDICATED Blood Urea Nitrogen 20 MG/DL Creatinine 1.34 MG/DL Random Glucose 115 MG/DL Calcium Level 9.8 MG/DL Sodium Level 138 MEQ/L Potassium Level 4.3 MEQ/L Chloride Level 106 MEQ/L Carbon Dioxide Level 23.9 MEQ/L Anion Gap 8 MEQ/L Estimat Glomerular Filtration Rate 60 ML/MIN Salicylates Level 3.5 MG/DL Urine Opiates Screen NEG Acetaminophen Level LESS THAN 2.0 MCG/ML Urine Barbiturates Screen NEG Urine Amphetamines Screen NEG Urine Benzodiazepines Screen NEG Urine Cocaine Screen NEG Urine Cannabinoids Screen NEG Ethyl Alcohol Level LESS THAN 3 MG/DL [facility] Supervised Visit with SHAYY: No Narrative Course 36 years old male with intentional overdose on 30 pills of Seroquel 50 mg and 30 pills of Benadryl 25 mg earlier today. Poison control contacted. Advised EKG every 2 hours and chemistry lab every 8 hour and temperature checked every shift. Advised watching for QS widening and QT prolongation. Patient was given Ativan 2 mg IV in the ED for agitation. Patient was given normal saline solution 1 L IV bolus. Diagnosis Primary Impression: Intentional SSRI (selective serotonin reuptake inhibitor) overdose Qualified Codes: T43.222A - Poisoning by selective serotonin reuptake inhibitors, intentional self-harm, initial encounter Additional Impression: Intentional diphenhydramine overdose Qualified Codes: T45.0X2A - Poisoning by antiallergic and antiemetic drugs, intentional self-harm, initial encounter Sonny Odell MD Nov 30, 2016 20:53
[2016-11-30] MEDS ORDERED: ONDANSETRON HCL 4 MG/2 ML VIAL IVP PRN (21:45)
[2016-11-30] MEDS ORDERED: NALOXONE HCL 0.4 MG/ML AMP IV PUSH PRN (21:45)
[2016-11-30] MEDS ORDERED: SODIUM CHLORIDE 0.9% FLUSH 10 ML FLUSH IV FLUSH PRN (21:45)
[2016-11-30] MEDS: SODIUM CHLOR 0.9% 1000 ML INJ 1,000 ML IV SCH (22:05)
[2016-11-30 22:44] LABS: BICARBONATE 26.3 MEQ/L (21.0-32.0); POTASSIUM 4.3 MEQ/L (3.5-5.1)
--- NOTE | 2016-11-30 22:45 | HHI.HP ---
[facility] Primary Care Physician Unknown Admission Diagnosis drug overdose. Suicidal. Diagnoses: Chief Complaint: Seroquel overdose Travel History International Travel<30 Days: No Contact w/Intl Traveler <30 Da: No Traveled to Known Affected Are: No History of Present Illness Written by ELIN Disla acting as scribe for Dr. Kiran] on 11/30/16 at 22:45. 36-year-old male with a history of ADHD, bipolar, anxiety and depression was brought to the ED by E back after taking Seroquel 50 mg 30 tablets and 20-30 pills of Benadryl about an hour prior to arrival. Patient is currently under a Bryant act. He is currently alert but will not talk. ROS is limited due to lack of communication. Review of Systems ROS Limitations: Uncooperative Past Family Social History Past Medical History Per EMR Bipolar/schizophrenia Anxiety Depression ADHD Polysubstance abuse Hep C Past Surgical History Per EMR Right groin cancer removal Reported Medications Reported Meds & Active Scripts Active Ibuprofen 800 Mg Tab 800 Mg PO Q8H PRN Keflex (Cephalexin) 500 Mg Cap 500 Mg PO Q6H Reported [place] Carbonate 300 Mg Tab 300 Mg PO BID Seroquel (Quetiapine Fumarate) 200 Mg Tab 200 Mg PO BID Adderall (Amphetamine-Dextroamphetamine) 30 Mg Tab 30 Mg PO BID Avoid late evening doses. Space doses at least 4 to 6 hours if more than once/day dosing. Allergies: Coded Allergies: shellfish derived (Unverified Allergy, Severe, HIVES, 11/02/16) *MDRO Multi-Drug Resistant Organism (Verified Adverse Reaction, Unknown, ) MRSA PCR Screen positive 10/28/14. Active Ordered Medications Current Medications Medications (Trade) Dose Ordered Sig/Mamie Route Start Time Stop Time Status Last Admin Sodium Chloride 1,000 ml @ 100 mls/hr Q10H IV 11/30/16 21:32 11/30/16 22:05 (NS Flush) 2 ml UNSCH PRN IV FLUSH 11/30/16 21:45 (NS Flush) 2 ml BID IV FLUSH 12/01/16 09:00 (Zofran Inj) 4 mg Q6H PRN IVP 11/30/16 21:45 (Narcan Inj) 0.4 mg UNSCH PRN IV PUSH 11/30/16 21:45 Family History She is unable to provide this information Social History Per EMR: Patient uses tobacco and illicit drugs Physical Exam Vital Signs Vital Signs Date Time Temp Pulse Resp B/P (MAP) Pulse Ox O2 Delivery O2 Flow Rate FiO2 11/30/16 22:41 96.8 80 18 108/63 (78) 100 11/30/16 22:12 11/30/16 20:27 98.4 93 16 118/59 (78) 98 Room Air 11/30/16 19:28 100 16 125/69 (87) 96 Room Air 11/30/16 18:26 127 20 97 Room Air 11/30/16 18:26 98.8 116 16 113/59 (77) 96 Room Air 11/30/16 18:19 98.8 141 30 128/56 (80) 98 Physical Exam GENERAL: This is a well-nourished, well-developed patient, in no apparent distress. SKIN: No rashes, ecchymoses or lesions. Cool and dry. HEAD: Atraumatic. Normocephalic. EYES: Pupils equal round and reactive ENT: Nose without bleeding, purulent drainage or septal hematoma. Airway patent. NECK: Trachea midline. No JVD CARDIOVASCULAR: Regular rate and rhythm without murmurs, gallops, or rubs. RESPIRATORY: Clear to auscultation. Breath sounds equal bilaterally. No wheezes , rales, or rhonchi. GASTROINTESTINAL: Abdomen soft, non-tender, nondistended. MUSCULOSKELETAL: Extremities without clubbing, cyanosis, or edema. No calf tenderness. NEUROLOGICAL: Awake and alert. Not talking at this time. Motor and sensory grossly within normal limits. Normal speech. Laboratory Laboratory Tests Test 11/30/16 18:45 11/30/16 22:05 White Blood Count 8.7 Red Blood Count 4.99 Hemoglobin 14.9 Hematocrit 44.1 Mean Corpuscular Volume 88.3 Mean Corpuscular Hemoglobin 29.9 Mean Corpuscular Hemoglobin Concent 33.8 Red Cell Distribution Width 13.6 Platelet Count 203 Mean Platelet Volume 9.7 Neutrophils (%) (Auto) 63.6 Lymphocytes (%) (Auto) 24.8 Monocytes (%) (Auto) 8.0 Eosinophils (%) (Auto) 2.7 Basophils (%) (Auto) 0.9 Neutrophils # (Auto) 5.5 Lymphocytes # (Auto) 2.1 Monocytes # (Auto) 0.7 Eosinophils # (Auto) 0.2 Basophils # (Auto) 0.1 CBC Comment DIFF FINAL Differential Comment Urine Color YELLOW Urine Turbidity CLEAR Urine pH 6.5 Urine Specific [place] 1.028 Urine Protein 30 Urine Glucose (UA) NEG Urine Ketones NEG Urine Occult Blood NEG Urine Nitrite NEG Urine Bilirubin NEG Urine Urobilinogen 2.0 Urine Leukocyte Esterase NEG Urine RBC 1 Urine WBC 1 Urine Hyaline Casts 1 Urine Mucus FEW Microscopic Urinalysis Comment CULT NOT INDICATED Blood Urea Nitrogen 20 18 Creatinine 1.34 1.20 Random Glucose 115 100 Calcium Level 9.8 8.6 Sodium Level 138 140 Potassium Level 4.3 4.3 Chloride Level 106 109 Carbon Dioxide Level 23.9 26.3 Anion Gap 8 5 Estimat Glomerular Filtration Rate 60 69 Salicylates Level 3.5 Urine Opiates Screen NEG Acetaminophen Level LESS THAN 2.0 Urine Barbiturates Screen NEG Urine Amphetamines Screen NEG Urine Benzodiazepines Screen NEG Urine Cocaine Screen NEG Urine Cannabinoids Screen NEG Ethyl Alcohol Level LESS THAN 3 Result Diagram: 11/30/16 1845 11/30/162204 Caprini VTE Risk Assessment Caprini VTE Risk Assessment: No/Low Risk (score <= 1) Caprini Risk Assessment Model Point Value = 1 Point Value = 2 Point Value = 3 Point Value = 5 Age 41-60 Minor surgery BMI > 25 kg/m2 Swollen legs Varicose veins or History of unexplained or recurrent spontaneous Oral contraceptives or hormone replacement Sepsis (< 1 month) Serious lung disease, including pneumonia (< 1 month) Abnormal pulmonary function Acute myocardial infarction Congestive heart failure (< 1 month) History of inflammatory bowel disease Medical patient at bed rest Age 61-74 Arthroscopic surgery Major open surgery (> 45 min) Laparoscopic surgery (> 45 min) Malignancy Confined to bed (> 72 hours) Immobilizing plaster cast Central venous access Age >= 75 History of VTE Family history of VTE Factor V Leiden Prothrombin [id number] Lupus anticoagulant Anticardiolipin antibodies Elevated serum homocysteine Heparin-induced thrombocytopenia Other congenital or acquired thrombophilia Stroke (< 1 month) Elective arthroplasty Hip, pelvis, or leg fracture Acute spinal cord injury (< 1 month) Prophylaxis Regimen Total Risk Factor Score Risk Level Prophylaxis Regimen 0-1 Low Early ambulation 2 Moderate Order ONE of the following: *Sequential Compression Device (SCD) *Heparin 5000 units SQ BID 3-4 Higher Order ONE of the following medications: *Heparin 5000 units SQ TID *Enoxaparin/Lovenox 40 mg SQ daily (WT < 150 kg, CrCl > 30 mL/min) *Enoxaparin/Lovenox 30 mg SQ daily (WT < 150 kg, CrCl > 10-29 mL/min) *Enoxaparin/Lovenox 30 mg SQ BID (WT < 150 kg, CrCl > 30 mL/min) AND/OR *Sequential Compression Device (SCD) 5 or more Highest Order ONE of the following medications: *Heparin 5000 units SQ TID (Preferred with Epidurals) *Enoxaparin/Lovenox 40 mg SQ daily (WT < 150 kg, CrCl > 30 mL/min) *Enoxaparin/Lovenox 30 mg SQ daily (WT < 150 kg, CrCl > 10-29 mL/min) *Enoxaparin/Lovenox 30 mg SQ BID (WT < 150 kg, CrCl > 30 mL/min) AND *Sequential Compression Device (SCD) Assessment and Plan Problem List: (1) OD (overdose of drug) ICD Code: T50.901A - OD (overdose of drug) Status: Acute (2) Encephalopathy, toxic ICD Code: G92 - Toxic encephalopathy Assessment and Plan 36-year-old male with a history of ADHD, bipolar, anxiety and depression was brought to the ED by E back after taking Seroquel 50 mg 30 tablets and 20-30 pills of Benadryl about an hour prior to arrival. Encephalopathy, toxic, due to overdose of Seroquel and Benadryl -Consult psychiatry -Continue Bryant act -Neuro checks -Serial EKGs -Serial BMPs -Sitter Acute kidney injury on admission, creatinine 1.34 resolved to 1.2 after fluids -Continue IVF, trend labs in a.m. DVT prophylaxis: SCDs This note was transcribed by tyrone [Wen Cerna]. I, Dr. Glenroy Ruth personally performed the history, physical exam, and medical decision making; and confirmed the accuracy of the information in the transcribed note. Authenticated by Dr. Glenroy Ruth on 11/30/16 at 23:50. Discussed Condition With Patient, RN and ED physician Wen Cerna Nov 30, 2016 22:45 Glenroy Ruth MD Nov 30, 2016 23:50
[2016-12-01 03:26] VITALS: BP 157/97; PULSE 70; RESP 19; TEMP 96.6; O2SAT 100
[2016-12-01] MEDS ORDERED: LORazepam 2 MG/ML VIAL IV PUSH ONE (04:45)
--- NOTE | 2016-12-01 07:08 | EKG ---
Date Performed: 11/30/2016 Time Performed: 19:00:36 PTAGE: 36 years EKG: SINUS TACHYCARDIA ABNORMAL RHYTHM ECG PREVIOUS TRACING : 11/30/2016 18.20 No significant change from previous tracing noted. DOCTOR: Bridger Hagen Interpretating Date/Time 12/01/2016 07:06:37
--- NOTE | 2016-12-01 07:09 | EKG ---
Date Performed: 11/30/2016 Time Performed: 18:20:28 PTAGE: 36 years EKG: SINUS TACHYCARDIA WITH SHORT ND INTERVAL ABNORMAL RHYTHM ECG PREVIOUS TRACING : 12/05/2014 17.14 Compared to previous tracing, heart rate has increased. DOCTOR: Bridger Hagen Interpretating Date/Time 12/01/2016 07:08:17
[2016-12-01 07:22] VITALS: PULSE 91
[2016-12-01 07:48] VITALS: BP 172/109; PULSE 85; RESP 20; TEMP 97.5; O2SAT 94
[2016-12-01] MEDS: SODIUM CHLOR 0.9% 1000 ML INJ 1,000 ML IV SCH (08:01)
[2016-12-01] MEDS ORDERED: cloNIDine HCL 0.1 MG TAB PO ONE ×2 (08:30→13:00)
--- NOTE | 2016-12-01 08:55 | EKG ---
Date Performed: 12/01/2016 Time Performed: 06:05:49 PTAGE: 36 years EKG: Sinus rhythm NORMAL ECG PREVIOUS TRACING : 12/01/2016 02.42 No significant change from previous tracing noted. DOCTOR: Bridger Hagen Interpretating Date/Time 12/01/2016 08:54:05
[2016-12-01] MEDS ORDERED: SODIUM CHLORIDE 0.9% FLUSH 10 ML FLUSH IV FLUSH SCH (09:00)
--- NOTE | 2016-12-01 09:04 | EKG ---
Date Performed: 12/01/2016 Time Performed: 02:42:21 PTAGE: 36 years EKG: Sinus rhythm NONSPECIFIC INTRAVENTRICULAR CONDUCTION DELAY BORDERLINE ECG PREVIOUS TRACING : 11/30/2016 22.09 No significant change from previous tracing noted. DOCTOR: Bridger Hagen Interpretating Date/Time 12/01/2016 09:03:57
--- NOTE | 2016-12-01 09:14 | EKG ---
Date Performed: 11/30/2016 Time Performed: 22:09:29 PTAGE: 36 years EKG: Sinus rhythm NORMAL ECG PREVIOUS TRACING : 11/30/2016 19.00 No significant change from previous tracing noted. DOCTOR: Bridger Hagen Interpretating Date/Time 12/01/2016 09:12:34
--- NOTE | 2016-12-01 10:12 | HHI.PR ---
Subjective Remarks Follow-up for overdose. Sitter at bedside. Patient awake and alert and sitting up in bed upon arrival. He does turn his head and follow me around the room, but does not speak. He won't answer questions which limits history. He does eventually start to mumble incoherently towards the end of my evaluation. He does follow commands. Objective Vitals Vital Signs Date Time Temp Pulse Resp B/P (MAP) Pulse Ox O2 Delivery O2 Flow Rate FiO2 12/01/16 07:48 97.5 85 20 172/109 (130) 94 12/01/16 07:22 91 12/01/16 03:26 96.6 70 19 157/97 (117) 100 11/30/16 23:39 96.8 74 16 114/77 (89) 100 11/30/16 22:41 96.8 80 18 108/63 (78) 100 11/30/16 22:15 79 11/30/16 22:12 11/30/16 20:27 98.4 93 16 118/59 (78) 98 Room Air 11/30/16 19:28 100 16 125/69 (87) 96 Room Air 11/30/16 18:26 127 20 97 Room Air 11/30/16 18:26 98.8 116 16 113/59 (77) 96 Room Air 11/30/16 18:19 98.8 141 30 128/56 (80) 98 I/O 11/30/16 11/30/16 11/30/16 12/01/16 12/01/16 12/01/16 07:00 15:00 23:00 07:00 15:00 23:00 Intake Total 1000 ml Balance 1000 ml Intake IV Total 1000 ml Result Diagram: 11/30/16 1845 11/30/162204 Objective Remarks GENERAL: Well-developed well-nourished. In no acute distress. SKIN: Warm and dry. No lesions noted. HEENT: Normocephalic. Pupils equal and round and reactive to light. Mucous membranes pink and moist. CARDIOVASCULAR: Regular rate and rhythm. No murmur appreciated. RESPIRATORY: No accessory muscle use. Clear to auscultation. Breath sounds equal bilaterally. GASTROINTESTINAL: Abdomen soft, non-tender, nondistended. Bowel sounds x4. MUSCULOSKELETAL: No obvious deformities. No clubbing or cyanosis. No edema. NEUROLOGICAL: Awake and alert. No focal neurological deficits. Moves upper and lower extremities spontaneously and to command. Mostly nonverbal with occasional incoherent mumbling. PSYCHIATRIC: Guarded mood and affect A/P Problem List: (1) OD (overdose of drug) ICD Code: T50.901A - OD (overdose of drug) Status: Acute (2) Encephalopathy, toxic ICD Code: G92 - Toxic encephalopathy Status: Acute Assessment and Plan 36-year-old male with a history of ADHD, bipolar, anxiety and depression was brought to the ED by paramedics after taking Seroquel 50 mg 30 tablets and 20- 30 pills of Benadryl about an hour prior to arrival. Acute toxic encephalopathy: Secondary to intentional overdose of Seroquel and Benadryl. UDS negative. This seems to be improving at this time, although the patient remains mostly nonverbal although this seems more psychiatric no somatic. -Supportive care -Neuro checks -BP is slightly elevated, give clonidine 1 and repeat vitals Intentional overdose: With Seroquel and Benadryl as above. Poison control recommended serial EKG and BMP monitoring. KIKA improving as below. EKGs still with normal QTC. -Under Bryant act. Psychiatry consulted, appreciate input Acute kidney injury: Creatinine 1.34, previously 1.08 on 11/02/16. Repeat creatinine 1.2, improving. -A.m. labs pending, continue IVF for now History of ADHD, bipolar disorder: -Hold home lithium, check a level. -Hold home Adderall and Seroquel for now and follow-up psychiatry recommendations DVT prophylaxis: SCDs Discharge Planning Follow-up psychiatry recommendations. The patient continues to improve today, also medical clearance later. Addendum 1500: Discussed at length with psychiatry, Dr. Minaya, we agree patient should be discharged to the med psych unit. Blood pressure improved with clonidine, continue as needed. Patient has remained stable on overnight observation. Discharge to med psych unit. Problem Qualifiers (1) OD (overdose of drug): Qualified Codes: T50.902A - Poisoning by unspecified drugs, medicaments and biological substances, intentional self-harm, initial encounter Elian Muñoz Dec 01, 2016 10:12
[2016-12-01] MEDS ORDERED: LORazepam 1 MG TAB PO PRN (10:45)
[2016-12-01] MEDS ORDERED: LORazepam 1 MG TAB PO ONE (10:45)
[2016-12-01] MEDS ORDERED: LORazepam 2 MG/ML VIAL IV PUSH PRN (10:45)
[2016-12-01 12:53] VITALS: BP 168/109; PULSE 82; O2SAT 100
[2016-12-01 14:10] VITALS: BP 149/107; PULSE 81
[2016-12-01] MEDS ORDERED: HALOPERIDOL LACTATE 5 MG/ML AMP IM STA (14:57)
[2016-12-01] MEDS ORDERED: CLON0.1T PO (15:10)
[2016-12-01] MEDS ORDERED: HALOPERIDOL LACTATE 5 MG/ML AMP IM PRN (16:30)
[2016-12-01 21:38] LABS: AUTOMATED NEUTROPHIL # 6.9 TH/MM3 (1.8-7.7); BASOPHIL % 0.4 % (0.0-2.0); EOSINOPHIL # 0.2 TH/MM3 (0-0.4); EOSINOPHIL % 2.4 % (0.0-4.0); HEMATOCRIT 49.5 % (39.0-51.0); HEMO FLAGS DIFF FINAL; LYMPH % 18.2 % (9.0-44.0); LYMPHOCYTE # 1.7 TH/MM3 (1.0-4.8); MEAN CELL VOLUME 90.7 FL (80.0-100.0); MEAN CORPUSCULAR HEMOGLOBIN 30.1 PG (27.0-34.0); MEAN CORPUSCULAR HGB CONC 33.2 % (32.0-36.0); MONO % 5.6 % (0.0-8.0); NEUT % 73.4 % (16.0-70.0); PLATELET COUNT 224 TH/MM3 (150-450); RED BLOOD COUNT 5.46 MIL/MM3 (4.50-5.90); WHITE BLOOD COUNT 9.4 TH/MM3 (4.0-11.0)
[2016-12-01 21:55] LABS: ALKALINE PHOSPHATASE 91 U/L (45-117); ALT (GPT) 80 U/L (12-78); ANION GAP 8 MEQ/L (5-15); AST (GOT) 30 U/L (15-37); BICARBONATE 20.8 MEQ/L (21.0-32.0); BLOOD UREA NITROGEN 14 MG/DL (7-18); CHLORIDE 108 MEQ/L (98-107); GLOMERULAR FILTRATION RATE 81 ML/MIN (>89); POTASSIUM 4.1 MEQ/L (3.5-5.1); SODIUM (NA) 137 MEQ/L (136-145); TOTAL BILIRUBIN ADULT 0.4 MG/DL (0.2-1.0)
== END 2016-12-01 16:19 | disposition home or self-care (01) ==
LOC: NEPC 18:16 → NEDA 21:25 → UNDOADMIN 21:25 → NEDA 21:35 → INTOOBSV 21:35 → NEPFCDU 22:18
PROVIDERS: ADMIT Internal Medicine; ATTEND Internal Medicine
DX: T43.592A Poisoning by other antipsychotics and neuroleptics, intentional self-harm, initial encounter (principal); T45.0X2A Poisoning by antiallergic and antiemetic drugs, intentional self-harm, initial encounter; G92 Toxic encephalopathy; N17.9 Acute kidney failure, unspecified; R00.0 Tachycardia, unspecified; R03.0 Elevated blood-pressure reading, without diagnosis of hypertension; J45.909 Unspecified asthma, uncomplicated; B19.20 Unspecified viral hepatitis C without hepatic coma; F20.9 Schizophrenia, unspecified; F31.9 Bipolar disorder, unspecified; F41.9 Anxiety disorder, unspecified; F90.9 Attention-deficit hyperactivity disorder, unspecified type; M19.90 Unspecified osteoarthritis, unspecified site; F15.10 Other stimulant abuse, uncomplicated; F11.10 Opioid abuse, uncomplicated; F17.200 Nicotine dependence, unspecified, uncomplicated; Z79.899 Other long term (current) drug therapy
CPT/HCPCS: 80048; 80053; 80178; 80307; 81001; 85025; 93005; 96361; 96372; 96374; 96376; 99291; G0378; J1630; J2060; J7030

== ENCOUNTER 2016-12-01 16:31 | Inpatient (IN) | payer SELFPAY ==
[~2016-12-01 16:31] MED LIST changes: +CLON0.1T PO
[2016-12-01] MEDS ORDERED: LORazepam 0.5 MG TAB PO PRN (16:45)
[2016-12-01] MEDS ORDERED: ACETAMINOPHEN 325 MG TAB PO PRN (16:45)
[2016-12-01] MEDS ORDERED: LORazepam 1 MG TAB PO PRN (16:45)
[2016-12-01] MEDS ORDERED: HALOPERIDOL LACTATE 5 MG/ML AMP IM PRN (16:45)
[2016-12-01] MEDS ORDERED: ALUMINUM/MAGNESIUM/SIMETH 30 ML CUP PO PRN (16:45)
[2016-12-01] MEDS ORDERED: MAGNESIUM HYDROXIDE SUSP 30 ML CUP PO PRN (16:45)
[2016-12-01] MEDS ORDERED: LORazepam 2 MG/ML VIAL IM PRN ×2 (16:45)
--- NOTE | 2016-12-01 16:51 | HHI.HP ---
Provisional Diagnosis Admission Date Dec 01, 2016 at 16:31 [place] I. Unspecified psychosis, history of ADHD, depression, anxiety, polysubstance dependence Certification of Person's Competence To Provide Express and Informed Consent I have personally examined Deonte Wolff , a person being served at [facility] on, Dec 01, 2016 16:48. Express and informed consent means consent voluntarily given in writing, by a competent person, after sufficient explanation and disclosure of the subject matter involved to enable the person to make a knowing and willful decision without any element of force, fraud, deceit, duress, or other form of constraint or coercion. This person is 18 years of age or older, is not now known to be incompetent to consent to treatment with a guardian advocate, and does not have a health care surrogate or proxy currently making medical treatment decisions. I have found this person to be one of the following: [] Competent to provide express and informed consent, as defined above, for voluntary admission to this facility and is competent to provide express and informed consent for treatment. He/she has the consistent capacity to make well reasoned, willful, and knowing decisions concerning his or her medical or mental health treatment. The person fully and consistently understands the purpose of the admission for examination/placement and is fully capable of personally exercising all rights [place] Incompetent to provide express and informed consent to voluntary admission, and this is incompetent to provide express and informed consent to treatment. The person must be transferred to involuntary status and a petition for a guardian advocate filed with the Circuit Court. [x] Refusing to provide express and informed consent to voluntary admission but is competent to provide express and informed consent for treatment. The person must be discharged or transferred to involuntary status. Form shall be completed within 24 hours of a person's arrival at the receiving facility and filed in the clinical record of each person: 1. Admitted on a voluntary basis 2. Permitted to provide express and informed consent to his/her own treatment 3. Allowed to transfer from involuntary to voluntary status 4. Prior to permitting a person to consent to his or her own treatment after having been previously found incompetent to consent to treatment. History of Present Illness Capacity: Has Capacity HPI The patient is a 36-year-old man, well known social circumstances, with documented psychiatric history of ADHD, bipolar, anxiety, polysubstance dependence, including methamphetamines, cocaine, cannabis, alcohol and depression, hospitalized here at [facility] in 2015, the connotation review, no significant medical history reported, who was brought to the ED by E back after taking Seroquel 50 mg 30 tablets and 20-30 pills of Benadryl about an hour prior to arrival. Patient is currently under a Bryant act. He is currently alert but will not talk. ROS is limited due to lack of communication. Consulted to psychiatry, but unable to perform psychiatric assessment due to level of disorganization and agitation. Patient is very restless, minimally verbal, and difficult to follow directions. Patient had to be medicated with Haldol 5 mg IM in order to calm him down. Review of Systems ROS Limitations: Unresponsive, Uncooperative Substance Abuse History Drugs/Alcohol past 12 months Patient has documented history of polysubstance dependence including cocaine, methamphetamines, alcohol and cannabis Past Family Social History Coded Allergies: shellfish derived (Unverified Allergy, Severe, HIVES, 11/02/16) *MDRO Multi-Drug Resistant Organism (Verified Adverse Reaction, Unknown, ) MRSA PCR Screen positive 10/28/14. Active Scripts Clonidine (Clonidine) 0.1 Mg Tab, 0.1 MG PO TID Y for SBP>160, DBP>90, #60 TAB 0 Refills Prov:Elian Muñoz 12/01/16 Discontinued Reported Medications [place] Carbonate ([place] Carbonate) 300 Mg Tab, 300 MG PO BID, TAB 0 Refills 06/18/16 Quetiapine (Seroquel) 200 Mg Tab, 200 MG PO BID, #60 TAB 0 Refills 06/18/16 Amphetamine-Dextroamphetamine (Adderall) 30 Mg Tab, 30 MG PO BID for Hyperactivity Control, #60 TAB 0 Refills Avoid late evening doses. Space doses at least 4 to 6 hours if more than once/day dosing. 06/18/16 Discontinued Scripts Ibuprofen (Ibuprofen) 800 Mg Tab, 800 MG PO Q8H Y for Pain/Inflammation, #30 TAB Prov:Re Jordan MD 06/19/16 Cephalexin (Keflex) 500 Mg Cap, 500 MG PO Q6H for Infection, #40 CAP Prov:Re Jordan MD 06/19/16 Mental Status Examination Appearance: Dirty, Disheveled Consciousness: Alert, Intoxicated Orientation: Person Motor Activity: Other (agitated) Speech: Incoherent Language: Other (incoherent) Fund of Knowledge: Inadequate Memory: Impaired Mood: Angry, Irritable Affect: Irritable Thought Process & Associations: Loose associations, Tangential Thought Content: Thought blocking Hallucination Type: Other (internally preoccupied) Suicidal Ideation: Yes Suicidal Intention: Yes Homicidal Plan: No Homicidal Intention: No Insight: Poor Judgment: Poor Assessment & Plan Problem List: (1) Unspecified psychosis ICD Codes: F29 - Unspecified psychosis not due to a substance or known physiological condition Assessment & Plan: On psychiatric evaluation today patient is disorganized, very agitated and restless, unable to follow redirection and trying to elope. Patient had to be medicated with Haldol 5 mg IM in order to calm him down. Labs were reviewed, QTc interval within the normal limits. Patient has reportedly tried to commit suicide by overdosing with Seroquel and Benadryl. The circumstances behind the overdose are unknown at this moment. Patient has an extensive history of polysubstance dependence. At this moment is unclear if the etiology of psychosis is related with drug intoxication, withdrawal, or due to a primary psychiatric condition decompensation. However, patient needs to be admitted for stabilization and safety. Collateral information is needed. loft worker for Psychosocial assessment and to coordinate a safe discharge plan is needed. Will order Haldol 5 mg twice a day for psychosis. [facility] protocol. Also Haldol 5 mg IM every 8 hours when necessary aggressive behavior and agitation. Assessment & Plan Estimated LOS: Kosta Husain MD Dec 01, 2016 16:51
[2016-12-01] MEDS ORDERED: cloNIDine HCL 0.1 MG TAB PO PRN (17:30)
[2016-12-01 17:34] VITALS: BP 191/119; PULSE 69; RESP 15
[2016-12-01] MEDS: NICOTINE 21 MG/24 HR PATCH T-DERMAL SCH (17:45)
[2016-12-01] MEDS ORDERED: cloNIDine HCL 0.2 MG/24 HR PATCH T-DERMAL ONE (18:00)
[2016-12-01 18:54] VITALS: BP 140/84
[2016-12-01 20:08] VITALS: BP 154/91
[2016-12-01 22:55] VITALS: BP 135/86; PULSE 73
[2016-12-01] MEDS: HALOPERIDOL 5 MG TAB PO SCH (23:37)
[2016-12-02] VITALS: BP 151/78; PULSE 71; RESP 18
[2016-12-02 03:00] VITALS: BP 144/100; PULSE 84; RESP 17
[2016-12-02 06:07] VITALS: BP 136/76; PULSE 81; RESP 16; TEMP 98.6; O2SAT 97
[2016-12-02 07:42] LABS: AUTOMATED NEUTROPHIL # 5.2 TH/MM3 (1.8-7.7); BASOPHIL # 0.1 TH/MM3 (0-0.2); BASOPHIL % 0.7 % (0.0-2.0); EOSINOPHIL # 0.4 TH/MM3 (0-0.4); EOSINOPHIL % 4.3 % (0.0-4.0); HEMATOCRIT 46.3 % (39.0-51.0); HEMO FLAGS DIFF FINAL; LYMPH % 25.7 % (9.0-44.0); LYMPHOCYTE # 2.2 TH/MM3 (1.0-4.8); MEAN CELL VOLUME 89.4 FL (80.0-100.0); MEAN CORPUSCULAR HEMOGLOBIN 30.1 PG (27.0-34.0); MEAN CORPUSCULAR HGB CONC 33.7 % (32.0-36.0); MONO % 8.4 % (0.0-8.0); NEUT % 60.9 % (16.0-70.0); PLATELET COUNT 233 TH/MM3 (150-450); RED BLOOD COUNT 5.18 MIL/MM3 (4.50-5.90); RED CELL DISTRIBUTION WIDTH 14.2 % (11.6-17.2); WHITE BLOOD COUNT 8.6 TH/MM3 (4.0-11.0)
[2016-12-02 08:19] LABS: ANION GAP 9 MEQ/L (5-15); AST (GOT) 22 U/L (15-37); BICARBONATE 23.2 MEQ/L (21.0-32.0); BLOOD UREA NITROGEN 15 MG/DL (7-18); CHLORIDE 103 MEQ/L (98-107); GLOMERULAR FILTRATION RATE 81 ML/MIN (>89); POTASSIUM 3.9 MEQ/L (3.5-5.1); SODIUM (NA) 135 MEQ/L (136-145)
[2016-12-02 08:20] LABS: ALT (GPT) 72 U/L (12-78)
[2016-12-02 08:28] LABS: ALKALINE PHOSPHATASE 87 U/L (45-117); FREE T4 0.89 NG/DL (0.76-1.46); LDL CHOLESTEROL 79 MG/DL (0-99); TOTAL BILIRUBIN ADULT 0.3 MG/DL (0.2-1.0)
[2016-12-02] MEDS: NICOTINE 21 MG/24 HR PATCH T-DERMAL SCH (09:12)
[2016-12-02] MEDS: HALOPERIDOL 5 MG TAB PO SCH (09:14)
--- NOTE | 2016-12-02 10:26 | PD.CONS ---
HPI Service [facility] Consult Requested By Doctor Kosta Minaya Reason for Consult Medical Management. Primary Care Physician No Primary Care Physician Diagnoses: History of Present Illness 36-year-old male with a history of ADHD, bipolar, anxiety and depression was brought to the ED by E back after taking Seroquel 50 mg 30 tablets and 20-30 pills of Benadryl about an hour prior to arrival. Seen in his bedroom in the presence of nurse Mr. Fajardo no new issues. Review of Systems Constitutional: DENIES: Fever, Chills, Change in appetite Endocrine: DENIES: Heat/cold intolerance Eyes: DENIES: Blurred vision, Eye pain Except as stated in HPI: all other systems reviewed are Neg Past Family Social History Allergies: Coded Allergies: shellfish derived (Unverified Allergy, Severe, HIVES, 11/02/16) *MDRO Multi-Drug Resistant Organism (Verified Adverse Reaction, Unknown, ) MRSA PCR Screen positive 10/28/14. Past Medical History Bipolar/schizophrenia Anxiety Depression ADHD Polysubstance abuse Hep C Past Surgical History Right groin cancer removal Reported Medications Reported Meds & Active Scripts Active Clonidine (Clonidine HCl) 0.1 Mg Tab 0.1 Mg PO TID PRN Active Ordered Medications Current Medications Medications (Trade) Dose Ordered Sig/Mamie Route Start Time Stop Time Status Last Admin (Ativan) 1 mg Q6H PRN PO 12/01/16 16:45 12/02/16 03:02 (Ativan Inj) 1 mg Q6H PRN IM 12/01/16 16:45 (Tylenol) 650 mg Q4H PRN PO 12/01/16 16:45 (Milk Of Magnesia Liq) 30 ml DAILY PRN PO 12/01/16 16:45 (Mag-Al Plus Susp Liq) 30 ml Q6H PRN PO 12/01/16 16:45 (Habitrol 21 Mg Patch.24 Hr) 1 patch DAILY T-DERMAL 12/01/16 18:00 (Haldol) 5 mg BID PO 12/01/16 21:00 12/02/16 09:14 (Haldol Inj) 5 mg Q8HR PRN IM 12/01/16 16:45 (Catapres) 0.1 mg TID PRN PO 12/01/16 17:30 12/02/16 03:02 Miscellaneous Information 1 HS T-DERMAL 12/02/16 21:00 Family History asked negative. Social History Patient uses tobacco and illicit drugs Physical Exam Vital Signs Vital Signs Date Time Temp Pulse Resp B/P (MAP) Pulse Ox O2 Delivery O2 Flow Rate FiO2 12/02/16 06:07 98.6 81 16 136/76 (96) 97 12/02/16 03:00 84 17 144/100 (115) 12/02/16 00:00 71 18 151/78 (102) 12/01/16 22:55 73 135/86 (102) 12/01/16 20:08 154/91 (112) 12/01/16 18:54 140/84 (102) 12/01/16 17:34 69 15 191/119 (143) Physical Exam GENERAL: This is a well-nourished, well-developed patient, in no apparent distress. SKIN: No rashes, ecchymoses or lesions. Cool and dry. HEAD: Atraumatic. Normocephalic. EYES: Pupils equal round and reactive ENT: Nose without bleeding, purulent drainage or septal hematoma. Airway patent. NECK: Trachea midline. No JVD CARDIOVASCULAR: Regular rate and rhythm without murmurs, gallops, or rubs. RESPIRATORY: Clear to auscultation. Breath sounds equal bilaterally. No wheezes , rales, or rhonchi. GASTROINTESTINAL: Abdomen soft, non-tender, nondistended. MUSCULOSKELETAL: Extremities without clubbing, cyanosis, or edema. No calf tenderness. NEUROLOGICAL: Awake and alert. Not talking at this time. Motor and sensory grossly within normal limits. Normal speech. Laboratory Laboratory Tests Test 12/02/16 06:02 White Blood Count 8.6 Red Blood Count 5.18 Hemoglobin 15.6 Hematocrit 46.3 Mean Corpuscular Volume 89.4 Mean Corpuscular Hemoglobin 30.1 Mean Corpuscular Hemoglobin Concent 33.7 Red Cell Distribution Width 14.2 Platelet Count 233 Mean Platelet Volume 9.2 Neutrophils (%) (Auto) 60.9 Lymphocytes (%) (Auto) 25.7 Monocytes (%) (Auto) 8.4 Eosinophils (%) (Auto) 4.3 Basophils (%) (Auto) 0.7 Neutrophils # (Auto) 5.2 Lymphocytes # (Auto) 2.2 Monocytes # (Auto) 0.7 Eosinophils # (Auto) 0.4 Basophils # (Auto) 0.1 CBC Comment DIFF FINAL Differential Comment Blood Urea Nitrogen 15 Creatinine 1.04 Random Glucose 83 Total Protein 7.2 Albumin 3.6 Calcium Level 9.2 Phosphorus Level 5.2 Magnesium Level 2.0 Alkaline Phosphatase 87 Aspartate Amino Transf (AST/SGOT) 22 Alanine Aminotransferase (ALT/SGPT) 72 Total Bilirubin 0.3 Sodium Level 135 Potassium Level 3.9 Chloride Level 103 Carbon Dioxide Level 23.2 Anion Gap 9 Estimat Glomerular Filtration Rate 81 Triglycerides Level 130 Cholesterol Level 147 LDL Cholesterol 79 HDL Cholesterol 42.0 Cholesterol/HDL Ratio 3.50 Free Thyroxine 0.89 Thyroid Stimulating Hormone 3rd Gen 1.780 Result Diagram: 12/02/1660112/02/16601 Imaging No imaging studies. Assessment and Plan Assessment and Plan 1. Encephalopathy Toxic due to overdose with Seroquel and Benadryl stable in his bedroom reviewed new laboratory stable 2. Acute Kidney Injury on admission Improved 3. Bipolar Disorder/Anxiety disorder, Psychiatry specialist following. 4. Polysubstance abuse by history 5. Hepatitis C status post treatment. Stable no further medical management at this time, following along with you DVT prophylaxis: SCDs Discussed Condition With Patient and nurse in the room, Code Status Full Code. Discussed Condition With Patient. Warner Humphrey MD Dec 02, 2016 10:26
[2016-12-02 13:21] LABS: HEMOGLOBIN A1a 1.2 %; HEMOGLOBIN A1b 1.6 %; HEMOGLOBIN Ao 85.5 %; HEMOGLOBIN LA1C 2.3 %; HEMOGLOBIN P3 3.7 %
--- NOTE | 2016-12-02 13:45 | HHI.DS ---
Psychiatry Discharge Summary Inpatient Psychiatric care?: Yes Advance Directive: No Mental Health AdvanceDirective: No Health Care Proxy: No Admission Admission Date Dec 01, 2016 at 16:31 Admission Diagnosis: (1) Adjustment disorder with mixed disturbance of emotions and conduct ICD Code: F43.25 - Adjustment disorder with mixed disturbance of emotions and conduct Brief History The patient is a 36-year-old man, well known social circumstances, with documented psychiatric history of ADHD, bipolar, anxiety, polysubstance dependence, including methamphetamines, cocaine, cannabis, alcohol and depression, hospitalized here at [facility] in 2014, the connotation review, no significant medical history reported, who was brought to the ED by E back after taking Seroquel 50 mg 30 tablets and 20-30 pills of Benadryl about an hour prior to arrival. Patient is currently under a Bryant act. He is currently alert but will not talk. ROS is limited due to lack of communication. Consulted to psychiatry, but unable to perform psychiatric assessment due to level of disorganization and agitation. Patient is very restless, minimally verbal, and difficult to follow directions. Patient had to be medicated with Haldol 5 mg IM in order to calm him down. Tobacco Use In Past 30 Days: No Tobacco Past 30 Days Alcohol Use: 4 or More Times Per Week Hospital Course Patient was admitted disability due to agitation, disorganized and aggressive behavior in the ER after a reported overdose with Seroquel. Today on psychiatric evaluation patient is calm, cooperative and pleasant. He entered 3 , logical coherent and relevant. Reports that he has been stable in lithium 600 mg twice a day, Seroquel 100 mg daily and Wellbutrin 150 mg twice a day prescribed by mental health practitioner in [facility]. Patient was also reports the use of illegal drugs. Patient states that yesterday after an argument with his he took "a bunch of my Seroquel"to go to sleep. Patient denies suicidal intentions, as the same way that he denies depressive symptoms, anxiety, prashanth, psychosis, suicidal and was ideation. Patient is future oriented, he says that on Sunday he has to go to an appointment for his SSI in [place]. She reports that he is compliant with psychotropics, he has a reports compliance with outpatient basis. Results Blood Pressure 136 / 76 Vital Signs Date Time Temp Pulse Resp B/P (MAP) Pulse Ox O2 Delivery O2 Flow Rate FiO2 12/02/16 06:07 98.6 81 16 136/76 (96) 97 Laboratory Tests Test 12/02/16 06:02 Monocytes (%) (Auto) 8.4 % (0.0-8.0) Eosinophils (%) (Auto) 4.3 % (0.0-4.0) Phosphorus Level 5.2 MG/DL (2.5-4.9) Sodium Level 135 MEQ/L (136-145) Estimat Glomerular Filtration Rate 81 ML/MIN (>89) Laboratory Results Test 12/02/16 06:02 Cholesterol Level 147 MG/DL (120-200) HDL Cholesterol 42.0 MG/DL (40.0-60.0) Hemoglobin A1c 5.3 % (4.3-6.0) LDL Cholesterol 79 MG/DL (0-99) Triglycerides Level 130 MG/DL (42-150) Summary of Procedures None Pending results at discharge: No Medications # of Antipsychotic meds at D/C: 1 Approp Antipsych med options 1 - Minimum of three failed multiple trials of monotherapy. 2 - Documented plan to taper to monotherapy due to previous use of multiple meds OR cross-taper in progress at D/C. 3 - Documentation of augmentation of Clozapine. 4 - Justification other than those listed in allowable values 1-3, document here : Discharge Discharge Date: Dec 02, 2016 Discharge Diagnosis: (1) Polysubstance dependence ICD Code: F19.20 - Polysubstance dependence Status: Chronic Pt Condition on Discharge: Stable Discharge Disposition: Discharge Home Discharge Instructions Diet Instructions: As Tolerated, No Restrictions Activities you can perform: Regular-No Restrictions Scheduled Appointment: [facility] Appointment Date: Dec 04, 2016 Appointment Time: 7:30am Discharge Time > 30 minutes Mental Status Examination Appearance: Dirty, Disheveled Consciousness: Alert, Intoxicated Orientation: Person Motor Activity: Other (agitated) Speech: Incoherent Language: Other (incoherent) Fund of Knowledge: Inadequate Memory: Impaired Mood: Angry, Irritable Affect: Irritable Thought Process & Associations: Loose associations, Tangential Thought Content: Thought blocking Hallucination Type: Other (internally preoccupied) Suicidal Ideation: Yes Suicidal Intention: Yes Homicidal Plan: No Homicidal Intention: No Insight: Poor Judgment: Poor Discharge/Advance Care Plan Health Problems: (1) Unspecified psychosis Goals to promote your health * To prevent worsening of your condition and complications * To maintain your health at the optimal level Directions to meet your goals Take your medications as prescribed Follow your dietary instruction Follow activity as directed Keep your appointments as scheduled Take your immunizations and boosters as scheduled If your symptoms worsen call your PCP, if no PCP go to Urgent Care Center or Emergency Room For 11/09 questions related to your inpatient stay or results of tests pending at discharge, please contact Dr. Kosta Minaya at Smoking is Dangerous to Your Health. Avoid second hand smoking Kosta Minaya MD Dec 02, 2016 13:44
[2016-12-02] MEDS ORDERED: REMOVE OLD NICOTINE PATCH T-DERMAL SCH (21:00)
== END 2016-12-02 14:25 | disposition home or self-care (01) | DRG 885 ==
LOC: H4EA 16:31
PROVIDERS: ADMIT Psychiatry & Neurology Psychiatry; ATTEND Psychiatry & Neurology Psychiatry
DX: F29 Unspecified psychosis not due to a substance or known physiological condition (principal); G92 Toxic encephalopathy; N17.9 Acute kidney failure, unspecified; F19.20 Other psychoactive substance dependence, uncomplicated; F90.9 Attention-deficit hyperactivity disorder, unspecified type; T43.592A Poisoning by other antipsychotics and neuroleptics, intentional self-harm, initial encounter; T45.0X2A Poisoning by antiallergic and antiemetic drugs, intentional self-harm, initial encounter; F17.210 Nicotine dependence, cigarettes, uncomplicated; F43.25 Adjustment disorder with mixed disturbance of emotions and conduct; F41.9 Anxiety disorder, unspecified; F31.9 Bipolar disorder, unspecified; F20.9 Schizophrenia, unspecified
CPT/HCPCS: 80053; 80061; 83036; 83735; 84100; 84439; 84443; 85025

== ENCOUNTER 2017-05-05 20:49 | Emergency (ER) | payer SELFPAY ==
[~2017-05-05] VITALS: Ht 180.3 cm; Wt 100.0 kg
[~2017-05-05 20:49] MED LIST changes: -ADDE30TA PO; -CEPH-460 PO; -IBUP800T23 PO; -LITH300T3 PO; -SERO200T PO
[2017-05-05 20:55] VITALS: PULSE 96; RESP 16; O2SAT 97
--- NOTE | 2017-05-05 21:01 | PD ---
HPI Chief Complaint: OD/ Ingestion Time Seen by Provider: 21:00 Travel History International Travel<30 days: No Contact w/Intl Traveler<30days: No Traveled to known affect area: No History of Present Illness HPI 36-year-old male with long-standing history of polysubstance abuse presents emergency department by Lu sheets for evaluation following a heroin overdose. Patient was found unresponsive by bystanders and CPR was started. Once the VAC arrived he was a GCS of 3 and then given 0.4 mg Narcan and woke up. He presents as a GCS of 15. Patient states that he got out of rehabilitation today. He drank some alcohol and then went and shot up some heroin. He does not remember what happened after that. Despite what his history reports as opiate dependency in the past, patient states he does not typically use opiates , he prefers ecstasy and methamphetamine. PFSH Past Medical History ADD: Yes ADHD: Yes Arthritis: Yes Asthma: Yes Autoimmune Disease: No Blood Disorders: No Bipolar Disorder: Yes Anxiety: Yes Depression: Yes Cancer: Yes (rt groin per H/P) Cardiovascular Problems: No Chemotherapy: No Cirrhosis: No COPD: No Cerebrovascular Accident: No Diabetes: No Diminished Hearing: No Endocrine: No Gastrointestinal Disorders: No GERD: No Genitourinary: No Headaches: Yes (All the time ) Hepatitis: Yes (HEP C) Hiatal Hernia: No Heparin Induced Thrombocytopen: No Immune Disorder: No Implanted Vascular Access Dvce: No Kidney Stones: No Musculoskeletal: Yes Neurologic: Yes (HAs) Psychiatric: Yes Reproductive: No Respiratory: Yes Immunizations Current: Yes Migraines: Yes Radiation Therapy: No Renal Failure: No Schizophrenia: Yes Seizures: Yes Sickle Cell Disease: No Sleep Apnea: No Thyroid Disease: No Ulcer: No Past Surgical History Abdominal Surgery: Yes (herniorrhaphy) AICD: No Arteriovenous Shunt: No Insulin Pump: No Joint Replacement: No Oral Surgery: Yes Pacemaker: No Other Surgery: Yes (CANCER REMOVED FROM RT GROIN) Social History Alcohol Use: Yes Tobacco Use: Yes (1/2PPD) Substance Use: No (HX OF POLYSUBSTANCE ABUSE METH AND HEROIN) Allergies-Medications (Allergen,Severity, Reaction): Coded Allergies: shellfish derived (Unverified Allergy, Severe, HIVES, 11/02/16) *MDRO Multi-Drug Resistant Organism (Verified Adverse Reaction, Unknown, ) MRSA PCR Screen positive 10/28/14. Reported Meds & Prescriptions Reported Meds & Active Scripts Active Clonidine (Clonidine HCl) 0.1 Mg Tab 0.1 Mg PO TID PRN Review of Systems Except as stated in HPI: all other systems reviewed are Neg Physical Exam Narrative GENERAL: Well-nourished male patient, in no acute distress. SKIN: Focused skin assessment warm/dry. HEAD: Atraumatic. Normocephalic. EYES: Pupils equal and round. No scleral icterus. No injection or drainage. ENT: No nasal bleeding or discharge. Mucous membranes pink and moist. NECK: Trachea midline. No JVD. CARDIOVASCULAR: Regular rate and rhythm. No murmur appreciated. RESPIRATORY: No accessory muscle use. Clear to auscultation. Breath sounds equal bilaterally. Contusion over the mid sternum. GASTROINTESTINAL: Abdomen soft, non-tender, nondistended. Hepatic and splenic margins not palpable. MUSCULOSKELETAL: No obvious deformities. No clubbing. No cyanosis. No edema. NEUROLOGICAL: Awake and alert. No obvious cranial nerve deficits. Motor grossly within normal limits. Normal speech. Data Data Last Documented VS Vital Signs Date Time Temp Pulse Resp B/P (MAP) Pulse Ox O2 Delivery O2 Flow Rate FiO2 05/05/17 21:40 97 Room Air 05/05/17 20:59 97 16 05/05/17 20:55 Orders Orders Electrocardiogram (05/05/17 21:02) Basic Metabolic Panel (Bmp) (05/05/17 21:02) Complete Blood Count With Diff (05/05/17 21:02) Prothrombin Time / Inr (Pt) (05/05/17 21:02) Act Partial Throm Time (Ptt) (05/05/17 21:02) Chest, Single Ap (05/05/17 21:02) Iv Access Insert/Monitor (05/05/17 21:02) Ecg Monitoring (05/05/17 21:02) Oximetry (05/05/17 21:02) Sodium Chloride 0.9% Flush (Ns Flush) (05/05/17 21:15) Sodium Chlor 0.9% 1000 Ml Inj (Ns 1000 M (05/05/17 21:02) Drug Screen, Random Urine (05/05/17 21:02) Troponin I (05/05/17 21:05) Labs Laboratory Tests Test 05/05/17 21:41 White Blood Count 7.2 TH/MM3 Red Blood Count 5.56 MIL/MM3 Hemoglobin 16.8 GM/DL Hematocrit 49.2 % Mean Corpuscular Volume 88.5 FL Mean Corpuscular Hemoglobin 30.3 PG Mean Corpuscular Hemoglobin Concent 34.3 % Red Cell Distribution Width 13.4 % Platelet Count 221 TH/MM3 Mean Platelet Volume 8.8 FL Neutrophils (%) (Auto) 58.2 % Lymphocytes (%) (Auto) 29.9 % Monocytes (%) (Auto) 9.1 % Eosinophils (%) (Auto) 2.0 % Basophils (%) (Auto) 0.8 % Neutrophils # (Auto) 4.2 TH/MM3 Lymphocytes # (Auto) 2.1 TH/MM3 Monocytes # (Auto) 0.7 TH/MM3 Eosinophils # (Auto) 0.1 TH/MM3 Basophils # (Auto) 0.1 TH/MM3 CBC Comment DIFF FINAL Differential Comment Prothrombin Time 9.8 SEC Prothromb Time International Ratio 1.0 RATIO Activated Partial Thromboplast Time 23.1 SEC Blood Urea Nitrogen 11 MG/DL Creatinine 1.45 MG/DL Random Glucose 90 MG/DL Calcium Level 8.6 MG/DL Sodium Level 140 MEQ/L Potassium Level 4.4 MEQ/L Chloride Level 109 MEQ/L Carbon Dioxide Level 21.5 MEQ/L Anion Gap 10 MEQ/L Estimat Glomerular Filtration Rate 55 ML/MIN Troponin I LESS THAN 0.02 NG/ML MDM Medical Decision Making Medical Screen Exam Complete: Yes Emergency Medical Condition: Yes Medical Record Reviewed: Yes Differential Diagnosis Opiate abuse versus overdose intentional versus accidental versus electrode abnormality Narrative Course 36-year-old male presents to emergency department for evaluation following a heroin overdose. He has GCS of 15 when he arrives. He was given 0.4 mg Narcan in route. He does have contusion on his chest from CPR compressions. Basic lab work, chest x-ray, troponin are all ordered. Laboratory Tests Test 05/05/17 21:41 White Blood Count 7.2 TH/MM3 Red Blood Count 5.56 MIL/MM3 Hemoglobin 16.8 GM/DL Hematocrit 49.2 % Mean Corpuscular Volume 88.5 FL Mean Corpuscular Hemoglobin 30.3 PG Mean Corpuscular Hemoglobin Concent 34.3 % Red Cell Distribution Width 13.4 % Platelet Count 221 TH/MM3 Mean Platelet Volume 8.8 FL Neutrophils (%) (Auto) 58.2 % Lymphocytes (%) (Auto) 29.9 % Monocytes (%) (Auto) 9.1 % Eosinophils (%) (Auto) 2.0 % Basophils (%) (Auto) 0.8 % Neutrophils # (Auto) 4.2 TH/MM3 Lymphocytes # (Auto) 2.1 TH/MM3 Monocytes # (Auto) 0.7 TH/MM3 Eosinophils # (Auto) 0.1 TH/MM3 Basophils # (Auto) 0.1 TH/MM3 CBC Comment DIFF FINAL Differential Comment Prothrombin Time 9.8 SEC Prothromb Time International Ratio 1.0 RATIO Activated Partial Thromboplast Time 23.1 SEC Blood Urea Nitrogen 11 MG/DL Creatinine 1.45 MG/DL Random Glucose 90 MG/DL Calcium Level 8.6 MG/DL Sodium Level 140 MEQ/L Potassium Level 4.4 MEQ/L Chloride Level 109 MEQ/L Carbon Dioxide Level 21.5 MEQ/L Anion Gap 10 MEQ/L Estimat Glomerular Filtration Rate 55 ML/MIN Troponin I LESS THAN 0.02 NG/ML Patient was observed on the monitor. He remained awake, alert, and oriented. He is counseled on drug use. He'll be discharged home. Diagnosis Primary Impression: OD (overdose of drug) Qualified Codes: T50.901A - Poisoning by unspecified drugs, medicaments and biological substances, accidental (unintentional), initial encounter Referrals: [facility] (Out patient) Patient Instructions: Adult Overdose (ED), General Instructions Additional Instructions: Importantly seek assistance for your drug addiction Follow-up with a primary care provider Return immediately with any acute worsening symptoms. Med/Other Pt SpecificInfo: No Change to Meds Disposition: 01 DISCHARGE HOME Condition: Stable MartinezMariluz nicholson ELIN May 05, 2017 21:01
[2017-05-05] MEDS ORDERED: SODIUM CHLORIDE 0.9% FLUSH 10 ML FLUSH IVF PRN (21:15)
[2017-05-05] MEDS: SODIUM CHLOR 0.9% 1000 ML INJ 1,000 ML IV ONE (21:39)
[2017-05-05 21:40] VITALS: O2SAT 97
--- NOTE | 2017-05-05 21:49 | RADRPT ---
EXAM DATE/TIME: 05/05/2017 21:16 [facility] COMPARISON: CHEST SINGLE AP, October 28, 2014, 15:48. INDICATIONS : Shortness of breath. MEDICAL HISTORY : Asthma SURGICAL HISTORY : None. ENCOUNTER: Initial ACUITY: 1 day PAIN SCORE: 0/10 LOCATION: Bilateral chest FINDINGS: The heart is mildly enlarged. The lungs are clear. The visualized osseous structures are grossly inta ct. CONCLUSION: 1. No acute cardiopulmonary findings are identified. Glenroy Allen MD on May 05, 2017 at 21:47 Board Certified Radiologist. This report was verified electronically.
[2017-05-05 22:04] LABS: AUTOMATED NEUTROPHIL # 4.2 TH/MM3 (1.8-7.7); BASOPHIL # 0.1 TH/MM3 (0-0.2); BASOPHIL % 0.8 % (0.0-2.0); EOSINOPHIL # 0.1 TH/MM3 (0-0.4); HEMATOCRIT 49.2 % (39.0-51.0); HEMOGLOBIN 16.8 GM/DL (13.0-17.0); LYMPH % 29.9 % (9.0-44.0); LYMPHOCYTE # 2.1 TH/MM3 (1.0-4.8); MEAN CELL VOLUME 88.5 FL (80.0-100.0); MEAN CORPUSCULAR HEMOGLOBIN 30.3 PG (27.0-34.0); MEAN CORPUSCULAR HGB CONC 34.3 % (32.0-36.0); MEAN PLATELET VOLUME 8.8 FL (7.0-11.0); MONO % 9.1 % (0.0-8.0); MONOCYTE # 0.7 TH/MM3 (0-0.9); NEUT % 58.2 % (16.0-70.0); PLATELET COUNT 221 TH/MM3 (150-450); RED BLOOD COUNT 5.56 MIL/MM3 (4.50-5.90); RED CELL DISTRIBUTION WIDTH 13.4 % (11.6-17.2); WHITE BLOOD COUNT 7.2 TH/MM3 (4.0-11.0)
[2017-05-05 22:13] LABS: PROTHROMBIN TIME - PATIENT 9.8 SEC (9.8-11.6)
[2017-05-05 22:34] LABS: BICARBONATE 21.5 MEQ/L (21.0-32.0); CALCIUM 8.6 MG/DL (8.5-10.1); CREATININE 1.45 MG/DL (0.60-1.30)
[2017-05-05 23:22] VITALS: BP 121/62; PULSE 87; RESP 16; O2SAT 98
--- NOTE | 2017-05-06 13:06 | EKG ---
Date Performed: 05/05/2017 Time Performed: 21:38:26 PTAGE: 36 years EKG: Sinus rhythm NORMAL ECG Since PREVIOUS TRACING , no significant change noted PREVIOUS TRACIN12/01/2016 06.05 DOCTOR: David Edmonds Interpretating Date/Time 05/06/2017 13:04:12
== END 2017-05-06 01:42 | disposition home or self-care (01) ==
LOC: NEPE 20:49
DX: T40.1X1A Poisoning by heroin, accidental (unintentional), initial encounter (principal); F90.9 Attention-deficit hyperactivity disorder, unspecified type; F41.9 Anxiety disorder, unspecified; F31.9 Bipolar disorder, unspecified; J45.909 Unspecified asthma, uncomplicated; B19.20 Unspecified viral hepatitis C without hepatic coma; F20.9 Schizophrenia, unspecified; M19.90 Unspecified osteoarthritis, unspecified site; F17.200 Nicotine dependence, unspecified, uncomplicated
CPT/HCPCS: 71045; 80048; 84484; 85025; 85610; 85730; 93005; 99285; J7030